=== PATIENT | male | born 1965 | race Caucasian/White ===

== ENCOUNTER → 2018-11-15 | Day surgery (SDC) | payer OTHER ==
[~2018-11-15] MED LIST: ARMOUR THYROID60 MG PO; ASA81 MG PO; CRESTOR10 MG PO; EPHEDRINE SULFATE INJ 50 MG/10 ML SYR ONE; FENTANYL CITRATE/PF 100MCG/2 ML INJ ONE; LISINOPRIL10 MG PO; METOCLOPRAMIDE HCL 10 MG/2ML VIAL ONE; MIDAZOLAM HCL 2 MG/2 ML VIAL ONE; Z.0.ESIDRIX25 MG PO; Z.0.TOPROL XL25 MG PO; Z.0.VALIUM5 MG PO
--- OUTSIDE RECORDS SUMMARY | 2018-11-15 10:11 | XMS REPORT | Clinical Summary ---
Author Author [facility] Organization [facility] Address Unknown Phone Unavailable Care Team Providers Care Commercial Litigation Associate Name Role Phone Tera Hunter MD PCP Allergies No Known Allergies Medications End Date Status Medication Sig Dispensed Refills Start Date Active aspirin 325 MG tablet Take 325 mg 0 by mouth daily. Active nitroglycerin (NITROSTAT) Place 0.4 mg 0 0.4 MG SL tablet under the tongue once. Active Problems Not on file Encounters Care Team Description Date Type Specialty Juan Sethi MD Calculus of ureter 04/06/2018 Hospital Radiology Encounter Juan Sethi MD Calculus of ureter (Primary Dx) 04/01/2018 Transcribe Access Orders after 11/14/2017 Social History Date Tobacco Use Types Packs/Day Years Used Never Smoker Smokeless Tobacco: Never Used Alcohol Use Drinks/Week oz/Week Comments No Sex Assigned at Date Recorded Not on file Industry Job Start Date Occupation Not on file Not on file Not on file Travel End Travel History Travel Start No recent travel history available. Last Filed Vital Signs Not on file Plan of Treatment Health Maintenance Due Date Last Done Comments COLON CANCER SCREENING 2014 SHINGLES VACCINES ( of 2014 2) INFLUENZA VACCINE 06/02/2018 Procedures Comments Procedure Name Priority Date/Time Associated Diagnosis CT ABDOMEN PELVIS WO Routine 04/06/2018 Calculus of ureter CONTRAST 9:31 AM CDT after 11/14/2017 Results * CT Abdomen Pelvis Wo Contrast (04/06/2018 9:31 AM CDT) Narrative Performed At EXAMINATION:CT ABDOMEN PELVIS WO CONTRAST [facility] CLINICAL HISTORY:N20.1 Calculus of ureter, STONES TECHNIQUE:Multiple axial CT images of the abdomen and pelvis are obtained without the use of intravenous contrast. Coronal and sagittal 3-D reconstructions are obtained. CT scans are performed using radiation dose reduction techniques.Technical factors are evaluated and adjusted to ensure appropriate moderation of exposure.Automated dose management technology is applied to adjust radiation exposure while achieving a diagnostic quality image. COMPARISON:10/08/2017 FINDINGS: Abdomen: The evaluation of the solid organs is limited without the use of intravenous contrast. The visualized lower lung zones has been removed. The gallbladder does not have any wall thickening. There is no pericholecystic fluid.. The CT appearance of the liver, spleen, pancreas and adrenal glands is unremarkable . The abdominal aorta has no aneurysmal dilatation. There is no retroperitoneal adenopathy. The left kidney does not have any stones or any hydronephrosis. The left ureter is unremarkable. The right kidney does not have any stones or any hydronephrosis. The right ureter does not have any stones. CT Pelvis: There is no evidence of any pneumoperitoneum. Stomach does not demonstrate any wall thickening. There is no bowel obstruction nor any dilated loops of bowel. Surgical clips are seen in the right lower quadrant. The evaluation of the GI tract is limited without any oral contrast. The colonic wall does not demonstrate any focal inflammation. There is no obvious wall thickening present. Small bowel is not dilated. The bladder does not demonstrate any masses. The prostate is minimally enlarged. There is no inguinal hernia present. Small inguinal nodes are present. IMPRESSION: 1. There are no renal, ureteral or bladder stones present. 2. There is no bowel obstruction nor any dilated loops of bowel. 3. Surgical clips are seen in the gallbladder fossa. Surgical clips also seen in the right lower quadrant which may suggest prior appendectomy. 4. The abdomen and pelvis do not demonstrate any masses. [facility]-[id number] Procedure Note [facility], Radiology Results Incoming - 04/06/2018 12:37 PM CDT EXAMINATION: CT ABDOMEN PELVIS WO CONTRAST CLINICAL HISTORY: N20.1 Calculus of ureter, STONES TECHNIQUE: Multiple axial CT images of the abdomen and pelvis are obtained without the use of intravenous contrast. Coronal and sagittal 3-D reconstructions are obtained. CT scans are performed using radiation dose reduction techniques. Technical factors are evaluated and adjusted to ensure appropriate moderation of exposure. Automated dose management technology is applied to adjust radiation exposure while achieving a diagnostic quality image. COMPARISON: 10/08/2017 FINDINGS: Abdomen: The evaluation of the solid organs is limited without the use of intravenous contrast. The visualized lower lung zones has been removed. The gallbladder does not have any wall thickening. There is no pericholecystic fluid.. The CT appearance of the liver, spleen, pancreas and adrenal glands is unremarkable . The abdominal aorta has no aneurysmal dilatation. There is no retroperitoneal adenopathy. The left kidney does not have any stones or any hydronephrosis. The left ureter is unremarkable. The right kidney does not have any stones or any hydronephrosis. The right ureter does not have any stones. CT Pelvis: There is no evidence of any pneumoperitoneum. Stomach does not demonstrate any wall thickening. There is no bowel obstruction nor any dilated loops of bowel. Surgical clips are seen in the right lower quadrant. The evaluation of the GI tract is limited without any oral contrast. The colonic wall does not demonstrate any focal inflammation. There is no obvious wall thickening present. Small bowel is not dilated. The bladder does not demonstrate any masses. The prostate is minimally enlarged. There is no inguinal hernia present. Small inguinal nodes are present. IMPRESSION: 1. There are no renal, ureteral or bladder stones present. 2. There is no bowel obstruction nor any dilated loops of bowel. 3. Surgical clips are seen in the gallbladder fossa. Surgical clips also seen in the right lower quadrant which may suggest prior appendectomy. 4. The abdomen and pelvis do not demonstrate any masses. [facility]-[id number] Performing Organization Address City/State/Zipcode Phone Number [facility] [address] [place] [address] after 11/14/2017 Insurance Payer Benefit Subscriber ID Type Phone Address Plan / Group CIGNA CIGNA OPEN xxxxxxxxxxx O ACCESS/NET WORK Advance Directives Patient has advance care planning documents on file. For more information, anni brito contact: Allan Esparza [address] [place] [address]
--- OUTSIDE RECORDS SUMMARY | 2018-11-15 10:12 | XMS REPORT | CCD ---
Author Author Auto Generated Organization [facility] Address Unknown Phone Unavailable Care Team Providers Care Farm Equipment Mechanic Apprentice Name Role Phone Tera Osuna CP Allergies, Adverse Reactions, Alerts Substance Reaction Status codeine Active Phenergan Active Toradol Active Problem List Condition Effective Dates Status Chest pain Active Depression Resolved HLD - Hyperlipidemia Resolved HTN - Hypertension Resolved Kidney stone Resolved Kidney stone Active Medications Medication Instructions Start Date End Date Status Ancef + Sodium 2 gm, Route: IVPB, ONCE, Dosing 08/11/2013 08/11/2013 Completed Chloride 0.9% IV 100 Weight 77.273, kg, Priority: STAT, mL Start date: 08/11/13 16:14:00, Stop date: 08/11/13 16:14:00(Same As: Ancef, Kefzol) hydromorphone 2 mg, 1 mL, Route: IVP, Drug form: 08/11/2013 08/11/2013 Completed INJ, ONCE, Dosing Weight 79.545, kg, Priority: STAT, Start date: 08/11/13 15:07:00, Stop date: 08/11/13 15:07:00(Same as: Dilaudid) Zofran 4 mg, 2 mL, Route: IVP, Drug form: 08/11/2013 08/11/2013 Completed INJ, ONCE, Dosing Weight 79.545, kg, Priority: STAT, Start date: 08/11/13 15:06:00, Stop date: 08/11/13 15:06:00(Same as: Zofran) morphine Sulfate 4 mg, 1 mL, Route: IVP, Drug form: 08/11/2013 08/11/2013 Completed INJ, ONCE, Dosing Weight 77.273, kg, Priority: STAT, Start date: 08/11/13 17:14:00, Stop date: 08/11/13 17:14:00(Same as:MORPhine Sulfate) Odin 10/325 oral 1 tab, Route: PO, Drug Form: TAB, 08/11/2013 08/11/2013 Completed tablet Dosing Weight 77.273, kg, ONCE, Start date: 08/11/13 19:53:00, Stop date: 08/11/13 19:53:00Do not exceed 4gm/day of acetaminophen. (Same as: Odin 325/10) trazodone 100 mg 100 mg, 1 tab, PO, Bedtime, PRN, 08/12/2013 Ordered oral tablet Insomnia, Substitution Allowed LR IV 1,000 mL 1,000 mL, Rate: 100 ml/hr, Infuse 08/11/2013 08/13/2013 Discontinued over: 10 hr, Route: IV, Dosing Weight 77.273 kg, Total Volume: 1,000, Start date: 08/11/13 22:22:00, Duration: 30 day, Stop date: 09/10/13 22:21:00 Odin 10/325 oral 2 tab, Route: PO, Drug Form: TAB, 08/11/2013 08/13/2013 Discontinued tablet Dosing Weight 77.273, kg, Q4H, PRN as needed for pain, Start date: 08/11/13 22:23:00, Duration: 30 day, Stop date: 09/10/13 22:22:00Do not exceed 4gm/day of acetaminophen. (Same as: Odin 325/10) Zofran 4 mg, 2 mL, Route: IV, Drug form: 08/11/2013 08/13/2013 Discontinued INJ, Q6H, Dosing Weight 77.273, kg, PRN as needed for nausea/vomiting, Start date: 08/11/13 22:24:00, Duration: 30 day, Stop date: 09/10/13 22:23:00(Same as: Zofran) Ancef + Sodium 2 gm, Route: IV, Drug form: 08/11/2013 08/13/2013 Discontinued Chloride 0.9% IV 100 PDR/INJ, ABXQ8H, Dosing Weight mL 77.273, kg, Start date: 08/11/13 23:00:00, Duration: 30 day, Stop date: 09/10/13 18:00:00(Same As: Ancef, Kefzol) Dilaudid 1 mg, Route: IV, ONCE, Dosing 08/11/2013 08/11/2013 Completed Weight 77.273, kg, Start date: 08/11/13 15:25:00, Stop date: 08/11/13 15:25:00 Lexapro 20 mg oral 20 mg, 1 tab, PO, Daily, 30 tab, 08/12/2013 Ordered tablet Substitution Allowed, TAB potassium citrate 5 5 mEq, 1 tab, PO, TID, Substitution 08/12/2013 Ordered mEq oral extended Allowed release tablet Keflex 500 mg oral 500 mg, 1 cap, PO, QID, 40 cap, 08/13/2013 08/23/2013 Ordered capsule Substitution Allowed, CAP Odin 10/325 oral 2 tab, PO, Q4H, PRN, 40 tab, 1, 1, 08/13/2013 Ordered tablet as needed for pain, Substitution Allowed, Maintenance, TAB Dilaudid 1 mg, 0.5 mL, Route: IV, Drug form: 08/11/2013 08/11/2013 Completed INJ, ONCE, Dosing Weight 77.273, kg, Start date: 08/11/13 19:53:00, Stop date: 08/11/13 19:53:00(Same as: Dilaudid) hydromorphone 1 mg, Route: IVP, ONCE, Dosing 08/11/2013 08/11/2013 Completed Weight 77.273, kg, Priority: STAT, Start date: 08/11/13 22:55:00, Stop date: 08/11/13 22:55:00 influenza virus 0.5 mL, Route: IM, Drug Form: SUSP, 08/12/2013 08/12/2013 Completed vaccine, inactivated Daily, Start date: 08/12/13 9:00:00, Duration: 1 doses or times, Stop date: 08/12/13 9:00:00(Same as: Fluzone) influenza virus 0.5 mL, Route: IM, Drug Form: SUSP, 08/12/2013 08/12/2013 Completed vaccine, inactivated Start date: 08/12/13 9:00:00, Stop date: 08/12/13 9:00:00 Livalo 2 mg oral 2 mg, 1 tab, PO, Daily, 08/12/2013 Ordered tablet Substitution Allowed levothyroxine 25 mcg 25 microgram, 1 tab, PO, Daily, 30 08/12/2013 Ordered (0.025 mg) oral tab, Substitution Allowed, TAB tablet metoprolol 25 mg 25 mg, 1 tab, PO, BID, Substitution 08/12/2013 Ordered oral tablet, Allowed extended release Odin 10/325 oral 1 tab, Route: PO, Dosing Weight 08/12/2013 08/12/2013 Completed tablet 77.273, kg, ONCE, Start date: 08/12/13 0:55:00, Stop date: 08/12/13 0:55:00 hydromorphone 1 mg, Route: IVP, ONCE, Dosing 08/12/2013 08/12/2013 Completed Weight 77.273, kg, Priority: STAT, Start date: 08/12/13 0:55:00, Stop date: 08/12/13 0:55:00 Dilaudid 0.5 mg, 0.25 mL, Route: IV, Drug 08/12/2013 08/13/2013 Discontinued form: INJ, Q3H, Dosing Weight 77.273, kg, PRN Pain, Start date: 08/12/13 10:24:00, Duration: 30 day, Stop date: 09/11/13 10:23:00(Same as: Dilaudid) fentanyl 50 microgram, Route: IVP, ONCE, 08/11/2013 08/11/2013 Completed Dosing Weight 77.273, kg, Priority: STAT, Start date: 08/11/13 18:25:00, Stop date: 08/11/13 18:25:00 Boostrix (Tdap) 0.5 ml, Route: IM, Dosing Weight 08/11/2013 08/11/2013 Completed 77.273, kg, ONCE, Start date: 08/11/13 15:18:00, Stop date: 08/11/13 15:18:00 Immunizations Vaccine Date Status diphtheria/pertussis, acel/tetanus adult 08/11/2013 Auth (Verified) influenza virus vaccine, inactivated 08/12/2013 Auth (Verified) Vital Signs Most recent to oldest [Reference Range]: 1 2 3 Height 167.64 cm (08/11/2013 15:05:00) Temperature Oral [96.4-99.1 DegF] 99 DegF (08/13/2013 07:40:00) 97.9 DegF (08/13/2013 03:29:00) 99.3 DegF *HI* (08/13/2013 00:05:00) Systolic Blood Pressure [90-140 mmHg] 107 mmHg (08/13/2013 07:40:00) 108 mmHg (08/13/2013 03:29:00) 110 mmHg (08/13/2013 00:05:00) Diastolic Blood Pressure [60-90 mmHg] 65 mmHg (08/13/2013 07:40:00) 59 mmHg *LOW* (08/13/2013 03:29:00) 69 mmHg (08/13/2013 00:05:00) Respiratory Rate [14-20 BRMIN] 18 BRMIN (08/13/2013 07:40:00) 18 BRMIN (08/13/2013 03:29:00) 18 BRMIN (08/13/2013 00:05:00) Peripheral Pulse Rate [60-100 bpm] 74 bpm (08/13/2013 07:40:00) 64 bpm (08/13/2013 03:29:00) 74 bpm (08/13/2013 00:05:00) Weight 77.273 kg (08/11/2013 15:05:00) Results BLOOD BANK RESULTS Most recent to oldest [Reference Range]: 1 2 ABO/Rh A NEG *Unknown* (08/11/2013 15:10:00) Antibody Scrn Negative (08/11/2013 15:10:00) CHEMISTRY Most recent to oldest [Reference Range]: 1 2 Sodium Lvl [135-145 mEq/L] 141 mEq/L (08/12/2013 10:49:00) 136 mEq/L (08/11/2013 15:13:00) Potassium Lvl [3.5-5.1 mEq/L] 4.2 mEq/L (08/12/2013 10:49:00) 3.7 mEq/L (08/11/2013 15:13:00) Chloride Lvl [95-109 mEq/L] 102 mEq/L (08/12/2013 10:49:00) 103 mEq/L (08/11/2013 15:13:00) CO2 [24-32 mEq/L] 31 mEq/L (08/12/2013 10:49:00) 24 mEq/L (08/11/2013 15:13:00) AGAP [10.0-20.0 mEq/L] 12.2 mEq/L (08/12/2013:49:00) 12.7 mEq/L (08/11/2013::) Creatinine Lvl [0.5-1.4 mg/dL] 1.0 mg/dL (08/12/2013:49:00) 1.1 mg/dL (08/11/2013::) eGFR 88 mL/min/1.73m2 1 *NA* (08/12/2013:49:00) 78 mL/min/1.73m2 2 *NA* (08/11/2013::) BUN [7-22 mg/dL] 12 mg/dL (08/12/2013:) 12 mg/dL (08/11/2013:) Glucose Lvl [70-99 mg/dL] 87 mg/dL 3 (08/12/2013:49:00) 109 mg/dL 4 *HI* (08/11/2013:) Calcium Lvl [8.5-10.5 mg/dL] 8.4 mg/dL *LOW* (08/12/2013:49:00) 8.9 mg/dL (08/11/2013::) 1Result Comment: The eGFR is calculated using the CKD-EPI formula. In most young, healthy individuals the eGFR will be >90 mL/min/1.73m2. The eGFR declines with age. An eGFR of 60-89 may be normal in some populations, particularly the elderly, for whom the CKD-EPI formula has not been extensively validated. Use of the eGFR is not recommended in the following populations: Individuals with unstable creatinine concentrations, including patients and those with serious co-morbid conditions. Patients with extremes in muscle mass or diet. The data above are obtained from the National Kidney Disease Education Program ( NKDEP) which additionally recommends that when the eGFR is used in patients with extremes of body mass index for purposes of drug dosing, the eGFR should be mul tiplied by the estimated BMI. 2Result Comment: The eGFR is calculated using the CKD-EPI formula. In most young, healthy individuals the eGFR will be >90 mL/min/1.73m2. The eGFR declines with age. An eGFR of 60-89 may be normal in some populations, particularly the elderly, for whom the CKD-EPI formula has not been extensively validated. Use of the eGFR is not recommended in the following populations: Individuals with unstable creatinine concentrations, including patients and those with serious co-morbid conditions. Patients with extremes in muscle mass or diet. The data above are obtained from the National Kidney Disease Education Program ( NKDEP) which additionally recommends that when the eGFR is used in patients with extremes of body mass index for purposes of drug dosing, the eGFR should be mul tiplied by the estimated BMI. 3Interpretive Data: Adult reference range values reflect the clinical guidelines of the [place] [employer]. 4Interpretive Data: Adult reference range values reflect the clinical guidelines of the [place] [employer]. HEMATOLOGY Most recent to oldest [Reference Range]: 1 2 WBC [3.7-10.4 K/CMM] 12.3 K/CMM *HI* (08/12/2013 10:49:00) 9.9 K/CMM (08/11/2013:13:00) RBC [4.70-6.10 M/CMM] 3.91 M/CMM *LOW* (08/12/2013 10:49:00) 4.11 M/CMM *LOW* (08/11/2013:13:00) Hgb [14.0-18.0 g/dL] 13.2 g/dL *LOW* (08/12/2013:49:00) 13.6 g/dL *LOW* (08/11/2013:13:00) Hct [42.0-54.0 %] 38.3 % *LOW* (08/12/2013:49:00) 39.6 % *LOW* (08/11/2013:13:00) MCV [80.0-94.0 fL] 97.9 fL *HI* (08/12/2013:49:00) 96.3 fL *HI* (08/11/2013:13:00) MCH [27.0-31.0 pg] 33.7 pg *HI* (08/12/2013:49:00) 33.1 pg *HI* (08/11/2013:13:00) MCHC [32.0-36.0 g/dL] 34.5 g/dL (08/12/2013 10:49:00) 34.4 g/dL (08/11/2013 15:13:00) RDW [11.5-14.5 %] 13.3 % (08/12/2013 10:49:00) 12.9 % (08/11/2013 15:13:00) Platelet [133-450 K/CMM] 207 K/CMM (08/12/2013 10:49:00) 230 K/CMM (08/11/2013 15:13:00) MPV [7.4-10.4 fL] 8.3 fL (08/12/2013 10:49:00) 8.8 fL (08/11/2013 15:13:00) Segs [45.0-75.0 %] 64.8 % (08/12/2013 10:49:00) 65.5 % (08/11/2013 15:13:00) Lymphocytes [20.0-40.0 %] 21.8 % (08/12/2013 10:49:00) 19.3 % *LOW* (08/11/2013 15:13:00) Monocytes [2.0-12.0 %] 8.7 % (08/12/2013 10:49:00) 8.6 % (08/11/2013 15:13:00) Eosinophils [0.0-4.0 %] 4.1 % *HI* (08/12/2013 10:49:00) 4.8 % *HI* (08/11/2013 15:13:00) Basophils [0.0-1.0 %] 0.6 % (08/12/2013 10:49:00) 1.8 % *HI* (08/11/2013 15:13:00) Segs-Bands # [1.5-8.1 K/CMM] 8.0 K/CMM (08/12/2013 10:49:00) 6.4 K/CMM (08/11/2013 15:13:00) Lymphocytes # [1.0-5.5 K/CMM] 2.7 K/CMM (08/12/2013 10:49:00) 1.9 K/CMM (08/11/2013 15:13:00) Monocytes # [0.0-0.8 K/CMM] 1.1 K/CMM *HI* (08/12/2013 10:49:00) 0.9 K/CMM *HI* (08/11/2013 15:13:00) Eosinophils # [0.0-0.5 K/CMM] 0.5 K/CMM (08/12/2013 10:49:00) 0.5 K/CMM (08/11/2013 15:13:00) Basophils # [0.0-0.2 K/CMM] 0.1 K/CMM (08/12/2013 10:49:00) 0.2 K/CMM (08/11/2013 15:13:00) PT [12.0-14.7 seconds] 13.4 seconds (08/12/2013 10:49:00) 13.0 seconds (08/11/2013 15:13:00) INR [0.85-1.17] 1.03 5 (08/12/2013 10:49:00) 0.99 6 (08/11/2013 15:13:00) PTT [22.9-35.8 seconds] 32.0 seconds 7 (08/12/2013 10:49:00) 30.9 seconds 8 (08/11/2013 15:13:00) 5Interpretive Data: RECOMMENDED RANGES FOR PROTIME INR: 2.0-3.0 for most medical and surgical thromboembolic states. 2.5-3.5 for artificial heart valves and recurrent embolism. INR SHOULD BE USED ONLY FOR PATIENTS ON STABLE ANTICOAGULANT THERAPY. 6Interpretive Data: RECOMMENDED RANGES FOR PROTIME INR: 2.0-3.0 for most medical and surgical thromboembolic states. 2.5-3.5 for artificial heart valves and recurrent embolism. INR SHOULD BE USED ONLY FOR PATIENTS ON STABLE ANTICOAGULANT THERAPY. 7Interpretive Data: Heparin Therapeutic Range: 57 - 92 Seconds 8Interpretive Data: Heparin Therapeutic Range: 57 - 92 Seconds IMMUNOLOGY Most recent to oldest [Reference Range]: 1 2 CDC-HIV 1/2 Ab [Negative] Negative *NA* (08/11/2013 15:11:00) Procedures Procedures Date Related Diagnosis Ankle reoperations Rotator cuff repair
--- OUTSIDE RECORDS SUMMARY | 2018-11-15 10:12 | XMS REPORT | CCD ---
Author Author Auto Generated Organization [facility] Address Unknown Phone Unavailable Care Team Providers Care Certified Ophthalmic Technician Name Role Phone Tera Osuna CP Allergies, Adverse Reactions, Alerts Substance Reaction Status codeine Active Phenergan Active Toradol Active Problem List Condition Effective Dates Status Chest pain Active Depression Resolved HLD - Hyperlipidemia Resolved HTN - Hypertension Resolved Kidney stone Resolved Kidney stone Active Medications Medication Instructions Start Date End Date Status tramadol 50 mg oral 50 mg, 1 tab, Route: PO, Drug form: 08/18/2013 08/20/2013 Discontinued tablet TAB, Q6H, Dosing Weight 77.273, kg, PRN as needed for pain, Start date: 08/18/13 9:42:00, Duration: 30 day, Stop date: 09/17/13 9:41:00Not to exceed 400mg/day. (Same As: Ultram) Bureau 10/325 oral 1 tab, Route: PO, Drug Form: TAB, 08/18/2013 08/20/2013 Discontinued tablet Dosing Weight 77.273, kg, Q4H, Start date: 08/18/13 12:00:00, Duration: 30 day, Stop date: 09/17/13 8:00:00Do not exceed 4gm/day of acetaminophen. (Same as: Bureau 325/10) morphine Sulfate 2 mg, 1 mL, Route: IVP, Drug form: 08/18/2013 08/18/2013 Discontinued INJ, Q2H, Dosing Weight 77.273, kg, PRN Pain, Start date: 08/18/13 9:42:00, Duration: 30 day, Stop date: 09/17/13 9:41:00(Same as:MORPhine Sulfate) Zofran 4 mg, 2 mL, Route: IV, Drug form: 08/18/2013 08/20/2013 Discontinued INJ, Q8H, Dosing Weight 77.273, kg, PRN Nausea, Start date: 08/18/13 16:23:00, Duration: 30 day, Stop date: 09/17/13 16:22:00(Same as: Zofran) Bureau 10 oral 1 tab, Route: PO, Dosing Weight 08/17/2013 08/17/2013 Completed tablet 77.273, kg, ONCE, Start date: 08/17/13 21:42:00, Stop date: 08/17/13 21:42:00 Dilaudid 1 mg, Route: IV, ONCE, Dosing 08/17/2013 08/17/2013 Completed Weight 77.273, kg, Start date: 08/17/13 21:42:00, Stop date: 08/17/13 21:42:00 Zofran 4 mg, 2 mL, Route: IVP, Drug form: 08/17/2013 08/17/2013 Completed INJ, ONCE, Dosing Weight 77.273, kg, Priority: STAT, Start date: 08/17/13 19:33:00, Stop date: 08/17/13 19:33:00(Same as: Zofran) normal saline 0.9% 1,000 mL, Rate: 125 ml/hr, Infuse 08/18/2013 08/18/2013 Completed IV 1,000 mL over: 8 hr, Route: IV, Dosing Weight 77.273 kg, Total Volume: 1,000, Priority: STAT, Start date: 08/18/13 0:32:00, Duration: 1 doses or times, Stop date: 08/18/13 8:31:00 Benadryl 25 mg, 1 cap, Route: PO, Drug form: 08/18/2013 08/20/2013 Discontinued CAP, TID, Dosing Weight 77.273, kg, PRN Itching, Start date: 08/18/13 9:40:00, Duration: 30 day, Stop date: 09/17/13 9:39:00(Same as: Benadryl) hydromorphone 0.5 mg, 0.25 mL, Route: IVP, Drug 08/18/2013 08/19/2013 Completed form: INJ, Q5Min, Dosing Weight 77.273, kg, PRN Pain Score 7-10, Start date: 08/18/13 9:46:00, Duration: 5 doses or times, Stop date: Limited # of times(Same as: Dilaudid) ondansetron 4 mg, 2 mL, Route: IVP, Drug form: 08/18/2013 08/20/2013 Discontinued INJ, ONCE, Dosing Weight 77.273, kg, PRN Nausea & Vomiting, Start date: 08/18/13 9:46:00(Same as: Zofran) flumazenil 0.2 mg, 2 mL, Route: IVP, Drug 08/18/2013 08/19/2013 Completed form: INJ, PRN, Dosing Weight 77.273, kg, PRN Benzodiazepine Reversal, Initial dose, Start date: 08/18/13 9:46:00, Duration: 1 day, Stop date: 08/19/13 9:45:00(Same as: Romazicon) naloxone 0.04 mg, 0.1 mL, Route: IVP, Drug 08/18/2013 08/20/2013 Discontinued form: INJ, Q2MIN, Dosing Weight 77.273, kg, PRN Narcotic Reversal, Start date: 08/18/13 9:46:00, Duration: 8 doses or times, Stop date: Limited # of timesSame as Narcan acetaminophen-10 1,000 mg, 100 mL, Route: IV, Drug 08/18/2013 08/20/2013 Discontinued mg/mL INTRAVENOUS form: INJ, ONCE, Dosing Weight solution 77.273, kg, PRN Pain Score 4-6, Start date: 08/18/13 9:46:00, Duration: 1 doses or times, Stop date: Limited # of times, Infuse over 15 minutes (for patient weight 50 kg or greater) Infuse over 15 minutes (for patient weight 50 kg or greater)Infuse over 15 minutes Do not exceed 4gm/day of acetaminophen acetaminophen-hydroc 15 mL, Route: PO, Drug Form: SOLN, 08/18/2013 08/19/2013 Completed odone 300 mg-10 Dosing Weight 77.273, kg, Q4H, PRN mg/15 mL oral liquid Pain Score 4-6, Start date: 08/18/13 9:46:00, Duration: 1 day, Stop date: 08/19/13 8:00:00Do not exceed 4gm/day of acetaminophen. (Same as: Zolvit) influenza virus 0.5 mL, Route: IM, Drug Form: SUSP, 08/12/2013 08/12/2013 Completed vaccine, inactivated Start date: 08/12/13 9:00:00, Stop date: 08/12/13 9:00:00 clindamycin 600 mg, 4 mL, Route: IVPB, Drug 08/17/2013 08/17/2013 Completed form: INJ, ONCE, Dosing Weight 77.273, kg, Priority: STAT, Start date: 08/17/13 19:40:00, Stop date: 08/17/13 19:40:00(clindamycin 150 mg/1 ml (600 mg/4 ml VL) INJ) (Same As: Cleocin) vancomycin + Sodium 1.5 gm, Route: IVPB, Drug form: 08/18/2013 08/18/2013 Completed Chloride 0.9% IV 250 INJ, ONCE, Start date: 08/18/13 mL 2:30:00, Stop date: 08/18/13 2:30:00(Same As: Vancocin) Vancomycin FOR IV SET ONLY Sodium Chloride 0.9% 2,000 mL, Rate: 2,000 ml/hr, Infuse 08/17/2013 08/17/2013 Completed (Bolus) IV 2000 mL over: 1 hr, Route: IV, Dosing Weight 77.273 kg, Total Volume: 2,000, Priority: STAT, Start date: 08/17/13 20:37:00, Duration: 1 doses or times, Stop date: 08/17/13 21:36:00, Bolus Dose Bolus Dose [place] 5/325 oral 1-2 tab, PO, Q4-6H, PRN, 40 tab, 08/20/2013 08/27/2013 Ordered tablet Pain, Substitution Allowed, Maintenance multivitamin 1 tab, PO, Daily, Substitution 08/18/2013 08/19/2013 Completed Allowed, Maintenance Dilaudid 0.5 mg, 0.25 mL, Route: IV, Drug 08/18/2013 08/19/2013 Discontinued form: INJ, Q3H, Dosing Weight 77.273, kg, PRN Pain, Start date: 08/18/13 10:11:00, Duration: 30 day, Stop date: 09/17/13 10:10:00(Same as: Dilaudid) Dilaudid 1 mg, 0.5 mL, Route: IV, Drug form: 08/17/2013 08/17/2013 Completed INJ, ONCE, Dosing Weight 77.273, kg, Start date: 08/17/13 19:33:00, Stop date: 08/17/13 19:33:00(Same as: Dilaudid) Lovenox 30 mg, 0.3 mL, Route: SUB-Q, Drug 08/18/2013 08/20/2013 Discontinued form: INJ, [id number], Dosing Weight 77.273, kg, Start date: 08/18/13 10:00:00, Duration: 30 day, Stop date: 09/16/13 22:00:00(Same as: Lovenox) Keflex 500 mg oral 500 mg, 1 cap, PO, QID, 40 cap, 08/20/2013 08/30/2013 Ordered capsule Substitution Allowed, CAP [place] 10/325 oral 2 tab, Route: PO, Drug Form: TAB, 08/18/2013 08/20/2013 Discontinued tablet Dosing Weight 77.273, kg, Q4H, PRN as needed for pain, Start date: 08/18/13 0:32:00, Duration: 30 day, Stop date: 09/17/13 0:31:00Do not exceed 4gm/day of acetaminophen. (Same as: Bureau 325/10) Zosyn 3.375 gm, Route: IVPB, Drug form: 08/18/2013 08/19/2013 Discontinued PDR/INJ, Q8H, Dosing Weight 77.273, kg, Priority: STAT, Start date: 08/18/13 0:31:00, Duration: 30 day, Stop date: 09/17/13 0:00:00(Same as: Zosyn) Dosing based on Piperacillin component vancomycin + Sodium 1.5 gm, Route: IVPB, Drug form: 08/19/2013 08/19/2013 Discontinued Chloride 0.9% IV 250 INJ, [id number], Start date: 08/19/13 mL 2:30:00, Duration: 30 day, Stop date: 09/17/13 2:30:00(Same As: Vancocin) Vancomycin FOR IV SET ONLY Lovenox 30 mg/0.3 mL 30 mg, SUB-Q, Q12H, 28 syr, 08/20/2013 09/03/2013 Ordered subcutaneous Substitution Allowed, SOLN solution Colace 100 mg oral 100 mg, 1 cap, PO, BID, PRN, 20 08/20/2013 Ordered capsule cap, Constipation, Substitution Allowed, CAP Boostrix (Tdap) 0.5 ml, Route: IM, Dosing Weight 08/11/2013 08/11/2013 Completed 77.273, kg, ONCE, Start date: 08/11/13 15:18:00, Stop date: 08/11/13 15:18:00 Immunizations Vaccine Date Status diphtheria/pertussis, acel/tetanus adult 08/11/2013 Auth (Verified) influenza virus vaccine, inactivated 08/12/2013 Auth (Verified) Vital Signs Most recent to oldest [Reference Range]: 1 2 3 Height 167.64 cm (08/18/2013 02:08:00) 167.64 cm (08/18/2013 00:30:00) 167.64 cm (08/17/2013 19:18:00) Temperature Oral [96.4-99.1 DegF] 97.9 DegF (08/20/2013 11:58:00) 98.1 DegF (08/20/2013 08:22:00) 98.1 DegF (08/20/2013 04:35:00) Systolic Blood Pressure [90-140 mmHg] 126 mmHg (08/20/2013 11:58:00) 112 mmHg (08/20/2013 08:22:00) 104 mmHg (08/20/2013 04:35:00) Diastolic Blood Pressure [60-90 mmHg] 72 mmHg (08/20/2013 11:58:00) 60 mmHg (08/20/2013 08:22:00) 56 mmHg *LOW* (08/20/2013 04:35:00) Respiratory Rate [14-20 BRMIN] 18 BRMIN (08/20/2013 11:58:00) 18 BRMIN (08/20/2013 08:22:00) 18 BRMIN (08/20/2013 04:35:00) Peripheral Pulse Rate [60-100 bpm] 52 bpm *LOW* (08/20/2013 11:58:00) 77 bpm (08/20/2013 08:22:00) 54 bpm *LOW* (08/20/2013 04:35:00) Weight 77.273 kg (08/18/2013 02:08:00) 77.273 kg (08/18/2013 00:30:00) 77.273 kg (08/17/2013 19:18:00) Results BLOOD BANK RESULTS Most recent to oldest [Reference Range]: 1 2 ABO/Rh A NEG *Unknown* (08/17/2013 19:40:00) Antibody Scrn Negative (08/17/2013 19:40:00) CHEMISTRY Most recent to oldest [Reference Range]: 1 2 Sodium Lvl [135-145 mEq/L] 138 mEq/L (08/17/2013 22:57:00) 137 mEq/L (08/17/2013 20:00:44) Potassium Lvl [3.5-5.1 mEq/L] 4.2 mEq/L (08/17/2013 22:57:00) 4.2 mEq/L (08/17/2013 20:00:44) Chloride Lvl [95-109 mEq/L] 105 mEq/L (08/17/2013 22:57:00) 100 mEq/L (08/17/2013 20:00:44) CO2 [24-32 mEq/L] 28 mEq/L (08/17/2013 22:57:00) 28 mEq/L (08/17/2013 20:00:44) AGAP [10.0-20.0 mEq/L] 9.2 mEq/L *LOW* (08/17/2013 22:57:00) 13.2 mEq/L (08/17/2013 20:00:44) Creatinine Lvl [0.5-1.4 mg/dL] 1.3 mg/dL (08/17/2013 22:57:00) 1.5 mg/dL *HI* (08/17/2013 20:00:44) eGFR 64 mL/min/1.73m2 1 *NA* (08/17/2013 22:57:00) 54 mL/min/1.73m2 2 *NA* (08/17/2013 20:00:44) BUN [7-22 mg/dL] 13 mg/dL (08/17/2013 22:57:00) 11 mg/dL (08/17/2013 20:00:44) Glucose Lvl [70-99 mg/dL] 105 mg/dL 3 *HI* (08/17/2013 22:57:00) 101 mg/dL 4 *HI* (08/17/2013 20:00:44) Calcium Lvl [8.5-10.5 mg/dL] 7.8 mg/dL *LOW* (08/17/2013 22:57:00) 8.9 mg/dL (08/17/2013 20:00:44) Lactic Acid Lvl [0.5-2.2 mMol/L] 0.6 mMol/L (08/17/2013 22:57:00) 3.4 mMol/L *HI* (08/17/2013 20:00:44) 1Result Comment: The eGFR is calculated using [...] values reflect the clinical guidelines of the [place] [employer]. 4Interpretive Data: Adult reference range values reflect the clinical guidelines of the [place] [employer]. HEMATOLOGY Most recent to oldest [Reference Range]: 1 2 WBC [3.7-10.4 K/CMM] 9.3 K/CMM (08/17/2013:00:44) RBC [4.70-6.10 M/CMM] 3.98 M/CMM *LOW* (08/17/201344) Hgb [14.0-18.0 g/dL] 12.7 g/dL *LOW* (08/17/201344) Hct [42.0-54.0 %] 38.2 % *LOW* (08/17/201344) MCV [80.0-94.0 fL] 96.1 fL *HI* (08/17/201344) MCH [27.0-31.0 pg] 32.0 pg *HI* (08/17/201344) MCHC [32.0-36.0 g/dL] 33.3 g/dL (08/17/201344) RDW [11.5-14.5 %] 12.3 % (08/17/2013:44) Platelet [133-450 K/CMM] 265 K/CMM (08/17/20130044) MPV [7.4-10.4 fL] 8.0 fL (08/17/2013:44) Segs [45.0-75.0 %] 54.0 % (08/17/201344) Lymphocytes [20.0-40.0 %] 31.0 % (08/17/2013:44) Monocytes [2.0-12.0 %] 8.3 % (08/17/2013:44) Eosinophils [0.0-4.0 %] 6.1 % *HI* (08/17/201344) Basophils [0.0-1.0 %] 0.6 % (08/17/2013:0044) Segs-Bands # [1.5-8.1 K/CMM] 4.9 K/CMM (08/17/2013 20:00:44) Lymphocytes # [1.0-5.5 K/CMM] 2.9 K/CMM (08/17/2013 20:00:44) Monocytes # [0.0-0.8 K/CMM] 0.8 K/CMM (08/17/2013 20:00:44) Eosinophils # [0.0-0.5 K/CMM] 0.6 K/CMM *HI* (08/17/2013 20:00:44) Basophils # [0.0-0.2 K/CMM] 0.1 K/CMM (08/17/2013 20:00:44) Sed Rate [0-15 mm/hr] 33 mm/hr *HI* (08/17/2013 19:40:00) PT [12.0-14.7 seconds] 13.0 seconds (08/17/2013 20:00:07) INR [0.85-1.17] 0.99 5 (08/17/2013 20:00:07) PTT [22.9-35.8 seconds] 36.3 seconds 6 *HI* (08/17/2013 20:00:07) 5Interpretive Data: RECOMMENDED RANGES FOR PROTIME INR: 2.0-3.0 for most medical and surgical thromboembolic states. 2.5-3.5 for artificial heart valves and recurrent embolism. INR SHOULD BE USED ONLY FOR PATIENTS ON STABLE ANTICOAGULANT THERAPY. 6Interpretive Data: Heparin Therapeutic Range: 57 - 92 Seconds IMMUNOLOGY Most recent to oldest [Reference Range]: 1 2 CRP, High Sensitivity 16.3 mg/L 7 *NA* (08/17/2013 19:40:00) 7Interpretive Data: Low Risk: <1.0 mg/L Average Risk: 1.0 - 3.0 mg/L High Risk: >3.0 mg/L Inflammation: >10.0 mg/L Microbiology Reports PROCEDURE:Culture: Blood STATUS: Auth (Verified) BODY SITE: Right Wrist COLLECTED DATE/TIME: 08/17/2013 19:40:00 SOURCE: Blood FREE TEXT SOURCE: FINAL REPORTS Final Report No Growth At 5 Days PRELIMINARY REPORTS Preliminary Report No Growth At 1 Day Preliminary Report No Growth At 3 Days Preliminary Report No Growth At 2 Days Preliminary Report No Growth At 4 Days Preliminary Report No Growth At 5 Days PROCEDURE:Culture: Blood STATUS: Auth (Verified) BODY SITE: COLLECTED DATE/TIME: 08/17/2013 19:40:00 SOURCE: Blood FREE TEXT SOURCE: rt forearm FINAL REPORTS Final Report No Growth At 5 Days PRELIMINARY REPORTS Preliminary Report No Growth At 3 Days Preliminary Report No Growth At 4 Days Preliminary Report No Growth At 1 Day Preliminary Report No Growth At 5 Days Preliminary Report No Growth At 2 Days Procedures Procedures Date Related Diagnosis Cholecystectomy
--- OUTSIDE RECORDS SUMMARY | 2018-11-15 10:12 | XMS REPORT | CCD ---
Author Author Auto Generated Organization [facility] Address Unknown Phone Unavailable Care Team Providers Care Strategic Development Manager Name Role Phone Tera Osuna CP Allergies, [...] 9:41:00Not to exceed 400mg/day. (Same As: Ultram) [place] 10/325 oral 1 tab, Route: PO, Drug Form: TAB, 08/18/2013 08/20/2013 Discontinued tablet Dosing Weight 77.273, kg, Q4H, Start date: 08/18/13 12:00:00, Duration: 30 day, Stop date: 09/17/13 8:00:00Do not exceed 4gm/day of acetaminophen. (Same as: [place] 325/10) morphine Sulfate 2 mg, 1 mL, [...] day, Stop date: 09/17/13 16:22:00(Same as: Zofran) [place] 10 oral 1 tab, Route: PO, Dosing [...] date: 08/17/13 21:36:00, Bolus Dose Bolus Dose [place] 5/325 oral 1-2 tab, PO, Q4-6H, PRN, [...] SUB-Q, Drug 08/18/2013 08/20/2013 Discontinued form: INJ, [id number], Dosing Weight 77.273, kg, Start date: 08/18/13 10:00:00, Duration: 30 day, Stop date: 09/16/13 22:00:00(Same as: Lovenox) Keflex 500 mg oral 500 mg, 1 cap, PO, QID, 40 cap, 08/20/2013 08/30/2013 Ordered capsule Substitution Allowed, CAP [place] 10/325 oral 2 tab, Route: PO, Drug Form: TAB, 08/18/2013 08/20/2013 Discontinued tablet Dosing Weight 77.273, kg, Q4H, PRN as needed for pain, Start date: 08/18/13 0:32:00, Duration: 30 day, Stop date: 09/17/13 0:31:00Do not exceed 4gm/day of acetaminophen. (Same as: [place] 325/10) Zosyn 3.375 gm, Route: IVPB, Drug form: 08/18/2013 08/19/2013 Discontinued PDR/INJ, Q8H, Dosing Weight 77.273, kg, Priority: STAT, Start date: 08/18/13 0:31:00, Duration: 30 day, Stop date: 09/17/13 0:00:00(Same as: Zosyn) Dosing based on Piperacillin component vancomycin + Sodium 1.5 gm, Route: IVPB, Drug form: 08/19/2013 08/19/2013 Discontinued Chloride 0.9% IV 250 INJ, [id number], Start date: 08/19/13 mL 2:30:00, Duration: 30 [...] values reflect the clinical guidelines of the [place] [employer]. 4Interpretive Data: Adult reference range values reflect the clinical guidelines of the [place] [employer]. HEMATOLOGY Most recent to oldest [...] >10.0 mg/L Microbiology Reports PROCEDURE:Culture: Blood STATUS: Order in Progress BODY SITE: Right Wrist COLLECTED DATE/TIME: 08/17/2013 19:40:00 SOURCE: Blood FREE TEXT SOURCE: PRELIMINARY REPORTS Preliminary Report No Growth At 1 Day Preliminary Report No Growth At 3 Days Preliminary Report No Growth At 2 Days Preliminary Report No Growth At 4 Days Preliminary Report No Growth At 5 Days PROCEDURE:Culture: Blood STATUS: Order in Progress BODY SITE: COLLECTED DATE/TIME: 08/17/2013 19:40:00 SOURCE: Blood FREE TEXT SOURCE: rt forearm PRELIMINARY REPORTS Preliminary Report No Growth At 3 Days Preliminary Report No Growth At 4 Days Preliminary Report No Growth At 1 Day Preliminary Report No Growth At 5 Days Preliminary Report No Growth At 2 Days Procedures Procedures Date Related Diagnosis Cholecystectomy
--- OUTSIDE RECORDS SUMMARY | 2018-11-15 10:12 | XMS REPORT | CCD ---
Author Author Auto Generated Organization [facility] Address Unknown Phone Unavailable Care Team Providers Care Coil Cutter Name Role Phone Tera Osuna CP Allergies, Adverse Reactions, Alerts Substance Reaction Status codeine Active Phenergan Active Toradol Active Problem List Condition Effective Dates Status Chest pain Active HLD - Hyperlipidemia Resolved HTN - Hypertension [...] 17:14:00, Stop date: 08/11/13 17:14:00(Same as:MORPhine Sulfate) [place] 10/325 oral 1 tab, Route: PO, Drug Form: TAB, 08/11/2013 08/11/2013 Completed tablet Dosing Weight 77.273, kg, ONCE, Start date: 08/11/13 19:53:00, Stop date: 08/11/13 19:53:00Do not exceed 4gm/day of acetaminophen. (Same as: [place] 325/10) trazodone 100 mg 100 mg, 1 tab, PO, Bedtime, PRN, 08/12/2013 Ordered oral tablet Insomnia, Substitution Allowed LR IV 1,000 mL 1,000 mL, Rate: 100 ml/hr, Infuse 08/11/2013 08/13/2013 Discontinued over: 10 hr, Route: IV, Dosing Weight 77.273 kg, Total Volume: 1,000, Start date: 08/11/13 22:22:00, Duration: 30 day, Stop date: 09/10/13 22:21:00 [place] 10/325 oral 2 tab, Route: PO, Drug Form: TAB, 08/11/2013 08/13/2013 Discontinued tablet Dosing Weight 77.273, kg, Q4H, PRN as needed for pain, Start date: 08/11/13 22:23:00, Duration: 30 day, Stop date: 09/10/13 22:22:00Do not exceed 4gm/day of acetaminophen. (Same as: [place] 325/10) Zofran 4 mg, 2 mL, Route: [...] 08/13/2013 08/23/2013 Ordered capsule Substitution Allowed, CAP [place] 10/325 oral 2 tab, PO, Q4H, PRN, [...] 08/12/2013 Ordered oral tablet, Allowed extended release [place] 10/325 oral 1 tab, Route: PO, Dosing [...] [10.0-20.0 mEq/L] 12.2 mEq/L (08/12/2013:49:00) 12.7 mEq/L (08/11/2013:13:) Creatinine Lvl [0.5-1.4 mg/dL] 1.0 mg/dL (08/12/2013:49:00) 1.1 mg/dL (08/11/2013:13:) eGFR 88 mL/min/1.73m2 1 *NA* (08/12/2013:49:00) 78 mL/min/1.73m2 2 *NA* (08/11/2013::) BUN [7-22 mg/dL] 12 mg/dL (08/12/2013:49:00) 12 mg/dL (08/11/2013:) Glucose Lvl [70-99 mg/dL] 87 mg/dL 3 (08/12/2013:49:00) 109 mg/dL 4 *HI* (08/11/2013::) Calcium Lvl [8.5-10.5 mg/dL] 8.4 mg/dL *LOW* (08/12/2013:49:00) 8.9 mg/dL (08/11/2013:13:00) 1Result Comment: The eGFR is calculated using [...] values reflect the clinical guidelines of the [place] [employer]. 4Interpretive Data: Adult reference range values reflect the clinical guidelines of the [place] [employer]. HEMATOLOGY Most recent to oldest [Reference Range]: 1 2 WBC [3.7-10.4 K/CMM] 12.3 K/CMM *HI* (08/12/2013 10:49:00) 9.9 K/CMM (08/11/2013:13:00) RBC [4.70-6.10 M/CMM] 3.91 M/CMM *LOW* (08/12/2013 10:49:00) 4.11 M/CMM *LOW* (08/11/2013:13:00) Hgb [14.0-18.0 g/dL] 13.2 g/dL *LOW* (08/12/2013:49:00) 13.6 g/dL *LOW* (08/11/2013:13:00) Hct [42.0-54.0 %] 38.3 % *LOW* (08/12/2013 10:49:00) 39.6 % *LOW* (08/11/2013:13:00) MCV [80.0-94.0 fL] 97.9 fL *HI* (08/12/2013 10:49:00) 96.3 fL *HI* (08/11/2013:13:00) MCH [27.0-31.0 pg] 33.7 pg *HI* (08/12/2013 10:49:00) 33.1 pg *HI* (08/11/2013:13:00) MCHC [32.0-36.0 g/dL] [...] 2 CDC-HIV 1/2 Ab [Negative] Negative *NA* (08/11/2013:11:00) Procedures Procedures Date Related Diagnosis Ankle reoperations Rotator cuff repair
--- OUTSIDE RECORDS SUMMARY | 2018-11-15 10:12 | XMS REPORT | CCD ---
Author Author Auto Generated Organization [facility] Address Unknown Phone Unavailable Care Team Providers Care Barrel Rifler Broach Name Role Phone Tera Osuna CP Allergies, [...] 9:41:00Not to exceed 400mg/day. (Same As: Ultram) [place] 10/325 oral 1 tab, Route: PO, Drug Form: TAB, 08/18/2013 08/20/2013 Discontinued tablet Dosing Weight 77.273, kg, Q4H, Start date: 08/18/13 12:00:00, Duration: 30 day, Stop date: 09/17/13 8:00:00Do not exceed 4gm/day of acetaminophen. (Same as: [place] 325/10) morphine Sulfate 2 mg, 1 mL, [...] day, Stop date: 09/17/13 16:22:00(Same as: Zofran) [place] 10 oral 1 tab, Route: PO, Dosing [...] date: 08/17/13 21:36:00, Bolus Dose Bolus Dose [place] 5/325 oral 1-2 tab, PO, Q4-6H, PRN, [...] SUB-Q, Drug 08/18/2013 08/20/2013 Discontinued form: INJ, [id number], Dosing Weight 77.273, kg, Start date: 08/18/13 10:00:00, Duration: 30 day, Stop date: 09/16/13 22:00:00(Same as: Lovenox) Keflex 500 mg oral 500 mg, 1 cap, PO, QID, 40 cap, 08/20/2013 08/30/2013 Ordered capsule Substitution Allowed, CAP [place] 10/325 oral 2 tab, Route: PO, Drug Form: TAB, 08/18/2013 08/20/2013 Discontinued tablet Dosing Weight 77.273, kg, Q4H, PRN as needed for pain, Start date: 08/18/13 0:32:00, Duration: 30 day, Stop date: 09/17/13 0:31:00Do not exceed 4gm/day of acetaminophen. (Same as: [place] 325/10) Zosyn 3.375 gm, Route: IVPB, Drug form: 08/18/2013 08/19/2013 Discontinued PDR/INJ, Q8H, Dosing Weight 77.273, kg, Priority: STAT, Start date: 08/18/13 0:31:00, Duration: 30 day, Stop date: 09/17/13 0:00:00(Same as: Zosyn) Dosing based on Piperacillin component vancomycin + Sodium 1.5 gm, Route: IVPB, Drug form: 08/19/2013 08/19/2013 Discontinued Chloride 0.9% IV 250 INJ, [id number], Start date: 08/19/13 mL 2:30:00, Duration: 30 [...] values reflect the clinical guidelines of the [place] [employer]. 4Interpretive Data: Adult reference range values reflect the clinical guidelines of the [place] [employer]. HEMATOLOGY Most recent to oldest [...]
--- OUTSIDE RECORDS SUMMARY | 2018-11-15 10:12 | XMS REPORT | Continuity of Care Document ---
Author Author [facility] Interface Address Unknown Phone Unavailable Problems Problem Status Onset Date Classification Date Reported Comments Source FLANK PAIN Active 07/02/2018 [facility] RENAL CHOLIC Active 07/02/2018 [facility] SENT BY DOC Active 08/17/2013 [facility] LLE CELLULITIS Active 08/17/2013 [facility] Chest pain Active Problem 08/27/2013 [facility] HLD - Hyperlipidemia Resolved Problem 08/27/2013 [facility] HTN - Hypertension Resolved Problem 08/27/2013 [facility] Kidney stone Resolved Problem 08/27/2013 [facility] Depression Resolved Problem 08/27/2013 [facility] CELLULITIS NOS Active [facility] Medications Medication Details Route Status Patient Instructions Ordering Provider Order Date Source Lovenox 30 mg/0.3 mL subcutaneous solution 30 mg, SUB-Q, Q12H, 28 syr, Substitution Allowed, SOLN Active Olson 08/20/2013 [facility] Colace 100 mg oral capsule 100 mg, 1 cap, PO, BID, PRN, 20 cap, Constipation, Substitution Allowed, CAP Active Olson 08/20/2013 [facility] [place] 5/325 oral tablet 1-2 tab, PO, Q4-6H, PRN, 40 tab, Pain, Substitution Allowed, Maintenance Active Olson 08/20/2013 [facility] Keflex 500 mg oral capsule 500 mg, 1 cap, PO, QID, 40 cap, Substitution Allowed, CAP Active Olson 08/20/2013 [facility] vancomycin + Sodium Chloride 0.9% IV 250 mL 1.5 gm, Route: IVPB, Drug form: INJ, [id number], Start date: 08/19/13 2:30:00, Duration: 30 day, Stop date: 09/17/13 2:30:00(Same As: Vancocin) Vancomycin FOR IV SET ONLY Inactive Ulices 08/19/2013 [facility] Zofran 4 mg, 2 mL, Route: IV, Drug form: INJ, Q8H, Dosing Weight 77.273, kg, PRN Nausea, Start date: 08/18/13 16:23:00, Duration: 30 day, Stop date: 09/17/13 16:22:00(Same as: Zofran) No Longer Active Indra 08/18/2013 [facility] multivitamin 1 tab, PO, Daily, Substitution Allowed, Maintenance No Longer Active 08/18/2013 [facility] [place] 10/325 oral tablet 1 tab, Route: PO, Drug Form: TAB, Dosing Weight 77.273, kg, Q4H, Start date: 08/18/13 12:00:00, Duration: 30 day, Stop date: 09/17/13 8:00:00Do not exceed 4gm/day of acetaminophen. (Same as: [place] 325/10) No Longer Active Ulices 08/18/2013 [facility] Dilaudid 0.5 mg, 0.25 mL, Route: IV, Drug form: INJ, Q3H, Dosing Weight 77.273, kg, PRN Pain, Start date: 08/18/13 10:11:00, Duration: 30 day, Stop date: 09/17/13 10:10:00(Same as: Dilaudid) No Longer Active [facility] 08/18/2013 [facility] Lovenox 30 mg, 0.3 mL, Route: SUB-Q, Drug form: INJ, [id number], Dosing Weight 77.273, kg, Start date: 08/18/13 10:00:00, Duration: 30 day, Stop date: 09/16/13 22:00:00(Same as: Lovenox) No Longer Active Ulices 08/18/2013 [facility] hydromorphone 0.5 mg, 0.25 mL, Route: IVP, Drug form: INJ, Q5Min, Dosing Weight 77.273, kg, PRN Pain Score 7-10, Start date: 08/18/13 9:46:00, Duration: 5 doses or times, Stop date: Limited # of times(Same as: Dil audid) No Longer Active Thalia 08/18/2013 [facility] ondansetron 4 mg, 2 mL, Route: IVP, Drug form: INJ, ONCE, Dosing Weight 77.273, kg, PRN Nausea & Vomiting, Start date: 08/18/13 9:46:00(Same as: Zofran) No Longer Active Tenino 08/18/2013 [facility] flumazenil 0.2 mg, 2 mL, Route: IVP, Drug form: INJ, PRN, Dosing Weight 77.273, kg, PRN Benzodiazepine Reversal, Initial dose, Start date: 08/18/13 9:46:00, Duration: 1 day, Stop date: 08/19/13 9:45:00(Same as: Romazicon) No Longer Active Tenino 08/18/2013 [facility] naloxone 0.04 mg, 0.1 mL, Route: IVP, Drug form: INJ, Q2MIN, Dosing Weight 77.273, kg, PRN Narcotic Reversal, Start date: 08/18/13 9:46:00, Duration: 8 doses or times, Stop date: Limited # of timesSame as Narcan No Longer Active Tenino 08/18/2013 [facility] acetaminophen-10 mg/mL INTRAVENOUS solution 1,000 mg, 100 mL, Route: IV, Drug form: INJ, ONCE, Dosing Weight 77.273, kg, PRN Pain Score 4-6, Start date: 08/18/13 9:46:00, Duration: 1 doses or times, Stop date: Limited # of times, Infuse over 15 minutes (for patient weight 50 kg or greater)Infuse over 15 minutes (for patient weight 50 kg or greater)Infuse over 15 minutes Do not exceed 4gm/day of acetaminophen No Longer Active Tenino 08/18/2013 [facility] acetaminophen-hydrocodone 300 mg-10 mg/15 mL oral liquid 15 mL, Route: PO, Drug Form: SOLN, Dosing Weight 77.273, kg, Q4H, PRN Pain Score 4-6, Start date: 08/18/13 9:46:00, Duration: 1 day, Stop date: 08/19/13 8:00:00Do not exceed 4gm/day of acetaminophen. (Same as: Zolvit) No Longer Active Tenino 08/18/2013 [facility] tramadol 50 mg oral tablet 50 mg, 1 tab, Route: PO, Drug form: TAB, Q6H, Dosing Weight 77.273, kg, PRN as needed for pain, Start date: 08/18/13 9:42:00, Duration: 30 day, Stop date: 09/17/13 9:41:00Not to exceed 400mg/day. (Same As: Ultram) No Longer Active [facility] 08/18/2013 [facility] morphine Sulfate 2 mg, 1 mL, Route: IVP, Drug form: INJ, Q2H, Dosing Weight 77.273, kg, PRN Pain, Start date: 08/18/13 9:42:00, Duration: 30 day, Stop date: 09/17/13 9:41:00(Same as:MORPhine Sulfate) Inactive [facility] 08/18/2013 [facility] Benadryl 25 mg, 1 cap, Route: PO, Drug form: CAP, TID, Dosing Weight 77.273, kg, PRN Itching, Start date: 08/18/13 9:40:00, Duration: 30 day, Stop date: 09/17/13 9:39:00(Same as: Benadryl) No Longer Active [facility] 08/18/2013 [facility] vancomycin + Sodium Chloride 0.9% IV 250 mL 1.5 gm, Route: IVPB, Drug form: INJ, ONCE, Start date: 08/18/13 2:30:00, Stop date: 08/18/13 2:30:00(Same As: Vancocin) Vancomycin FOR IV SET ONLY Inactive Zach 08/18/2013 [facility] normal saline 0.9% IV 1,000 mL 1,000 mL, Rate: 125 ml/hr, Infuse over: 8 hr, Route: IV, Dosing Weight 77.273 kg, Total Volume: 1,000, Priority: STAT, Start date: 08/18/13 0:32:00, Duration: 1 doses or times, Stop date: 08/18/13 8:31:00 Inactive Zach 08/18/2013 [facility] [place] 10/325 oral tablet 2 tab, Route: PO, Drug Form: TAB, Dosing Weight 77.273, kg, Q4H, PRN as needed for pain, Start date: 08/18/13 0:32:00, Duration: 30 day, Stop date: 09/17/13 0:31:00Do not exceed 4gm/day of acetaminophen. (Same as: [place] 325/10) No Longer Active Zach 08/18/2013 [facility] Zosyn 3.375 gm, Route: IVPB, Drug form: PDR/INJ, Q8H, Dosing Weight 77.273, kg, Priority: STAT, Start date: 08/18/13 0:31:00, Duration: 30 day, Stop date: 09/17/13 0:00:00(Same as: Zosyn) Dosing based on Piperacillin component No Longer Active Ulices 08/18/2013 [facility] [place] 10/325 oral tablet 1 tab, Route: PO, Dosing Weight 77.273, kg, ONCE, Start date: 08/17/13 21:42:00, Stop date: 08/17/13 21:42:00 Inactive Ananda 08/18/2013 [facility] Dilaudid 1 mg, Route: IV, ONCE, Dosing Weight 77.273, kg, Start date: 08/17/13 21:42:00, Stop date: 08/17/13 21:42:00 Inactive Ananda 08/18/2013 [facility] Sodium Chloride 0.9% (Bolus) IV 2000 mL 2,000 mL, Rate: 2,000 ml/hr, Infuse over: 1 hr, Route: IV, Dosing Weight 77.273 kg, Total Volume: 2,000, Priority: STAT, Start date: 08/17/13 20:37:00, Duration: 1 doses or times, Stop date: 08/17/13 21:36:00, Bolus DoseBolus Dose Inactive Ananda 08/18/2013 [facility] clindamycin 600 mg, 4 mL, Route: IVPB, Drug form: INJ, ONCE, Dosing Weight 77.273, kg, Priority: STAT, Start date: 08/17/13 19:40:00, Stop date: 08/17/13 19:40:00(clindamycin 150 mg/1 ml (600 mg/4 ml VL) INJ) ( Same As: Cleocin) Inactive Ananda 08/18/2013 [facility] Zofran 4 mg, 2 mL, Route: IVP, Drug form: INJ, ONCE, Dosing Weight 77.273, kg, Priority: STAT, Start date: 08/17/13 19:33:00, Stop date: 08/17/13 19:33:00(Same as: Zofran) Inactive Joaquín 08/18/2013 [facility] Dilaudid 1 mg, 0.5 mL, Route: IV, Drug form: INJ, ONCE, Dosing Weight 77.273, kg, Start date: 08/17/13 19:33:00, Stop date: 08/17/13 19:33:00(Same as: Dilaudid) Inactive Joaquín 08/18/2013 [facility] Keflex 500 mg oral capsule 500 mg, 1 cap, PO, QID, 40 cap, Substitution Allowed, CAP Active Enrico 08/13/2013 [facility] [place] 10/325 oral tablet 2 tab, PO, Q4H, PRN, 40 tab, 1, 1, as needed for pain, Substitution Allowed, Maintenance, TAB Active Enrico 08/13/2013 [facility] trazodone 100 mg oral tablet 100 mg, 1 tab, PO, Bedtime, PRN, Insomnia, Substitution Allowed Active 08/12/2013 [facility] Lexapro 20 mg oral tablet 20 mg, 1 tab, PO, Daily, 30 tab, Substitution Allowed, TAB Active 08/12/2013 [facility] potassium citrate 5 mEq oral extended release tablet 5 mEq, 1 tab, PO, TID, Substitution Allowed Active 08/12/2013 [facility] Livalo 2 mg oral tablet 2 mg, 1 tab, PO, Daily, Substitution Allowed Active 08/12/2013 [facility] levothyroxine 25 mcg (0.025 mg) oral tablet 25 microgram, 1 tab, PO, Daily, 30 tab, Substitution Allowed, TAB Active 08/12/2013 [facility] metoprolol 25 mg oral tablet, extended release 25 mg, 1 tab, PO, BID, Substitution Allowed Active 08/12/2013 [facility] Dilaudid 0.5 mg, 0.25 mL, Route: IV, Drug form: INJ, Q3H, Dosing Weight 77.273, kg, PRN Pain, Start date: 08/12/13 10:24:00, Duration: 30 day, Stop date: 09/11/13 10:23:00(Same as: Dilaudid) No Longer Active Enrico 08/12/2013 [facility] influenza virus vaccine, inactivated 0.5 mL, Route: IM, Drug Form: SUSP, Start date: 08/12/13 9:00:00, Stop date: 08/12/13 9:00:00 Inactive SYSTEM 08/12/2013 [facility] [place] 10/325 oral tablet 1 tab, Route: PO, Dosing Weight 77.273, kg, ONCE, Start date: 08/12/13 0:55:00, Stop date: 08/12/13 0:55:00 Inactive [facility] 08/12/2013 [facility] hydromorphone 1 mg, Route: IVP, ONCE, Dosing Weight 77.273, kg, Priority: STAT, Start date: 08/12/13 0:55:00, Stop date: 08/12/13 0:55:00 Inactive [facility] 08/12/2013 [facility] Ancef + Sodium Chloride 0.9% IV 100 mL 2 gm, Route: IV, Drug form: PDR/INJ, [id number], Dosing Weight 77.273, kg, Start date: 08/11/13 23:00:00, Duration: 30 day, Stop date: 09/10/13 18:00:00(Same As: Ancef, Kefzol) No Longer Active [facility] 08/12/2013 [facility] hydromorphone 1 mg, Route: IVP, ONCE, Dosing Weight 77.273, kg, Priority: STAT, Start date: 08/11/13 22:55:00, Stop date: 08/11/13 22:55:00 Inactive [facility] 08/12/2013 [facility] Zofran 4 mg, 2 mL, Route: IV, Drug form: INJ, Q6H, Dosing Weight 77.273, kg, PRN as needed for nausea/vomiting, Start date: 08/11/13 22:24:00, Duration: 30 day, Stop date: 09/10/13 22:23:00(Same as: Zofran) No Longer Active [facility] 08/12/2013 [facility] [place] 10/325 oral tablet 2 tab, Route: PO, Drug Form: TAB, Dosing Weight 77.273, kg, Q4H, PRN as needed for pain, Start date: 08/11/13 22:23:00, Duration: 30 day, Stop date: 09/10/13 22:22:00Do not exceed 4gm/day of acetaminophen. (Same as: [place] 325/10) No Longer Active Enrico 08/12/2013 [facility] LR IV 1,000 mL 1,000 mL, Rate: 100 ml/hr, Infuse over: 10 hr, Route: IV, Dosing Weight 77.273 kg, Total Volume: 1,000, Start date: 08/11/13 22:22:00, Duration: 30 day, Stop date: 09/10/13 22:21:00 No Longer Active Enrico 08/12/2013 [facility] [place] 10/325 oral tablet 1 tab, Route: PO, Drug Form: TAB, Dosing Weight 77.273, kg, ONCE, Start date: 08/11/13 19:53:00, Stop date: 08/11/13 19:53:00Do not exceed 4gm/day of acetaminophen. (Same as: [place] 325/10) Inactive Trivedi 08/12/2013 [facility] Dilaudid 1 mg, 0.5 mL, Route: IV, Drug form: INJ, ONCE, Dosing Weight 77.273, kg, Start date: 08/11/13 19:53:00, Stop date: 08/11/13 19:53:00(Same as: Dilaudid) Inactive Trivedi 08/12/2013 [facility] fentanyl 50 microgram, Route: IVP, ONCE, Dosing Weight 77.273, kg, Priority: STAT, Start date: 08/11/13 18:25:00, Stop date: 08/11/13 18:25:00 Inactive July 08/11/2013 [facility] morphine Sulfate 4 mg, 1 mL, Route: IVP, Drug form: INJ, ONCE, Dosing Weight 77.273, kg, Priority: STAT, Start date: 08/11/13 17:14:00, Stop date: 08/11/13 17:14:00(Same as:MORPhine Sulfate) Inactive July 08/11/2013 [facility] Ancef + Sodium Chloride 0.9% IV 100 mL 2 gm, Route: IVPB, ONCE, Dosing Weight 77.273, kg, Priority: STAT, Start date: 08/11/13 16:14:00, Stop date: 08/11/13 16:14:00(Same As: Ancef, Kefzol) Inactive Hoot 08/11/2013 [facility] Dilaudid 1 mg, Route: IV, ONCE, Dosing Weight 77.273, kg, Start date: 08/11/13 15:25:00, Stop date: 08/11/13 15:25:00 Inactive Hoot 08/11/2013 [facility] Boostrix (Tdap) 0.5 ml, Route: IM, Dosing Weight 77.273, kg, ONCE, Start date: 08/11/13 15:18:00, Stop date: 08/11/13 15:18:00 Inactive [facility] 08/11/2013 [facility] hydromorphone 2 mg, 1 mL, Route: IVP, Drug form: INJ, ONCE, Dosing Weight 79.545, kg, Priority: STAT, Start date: 08/11/13 15:07:00, Stop date: 08/11/13 15:07:00(Same as: [facility]audid) [facility] Zofran 4 mg, 2 mL, Route: IVP, Drug form: INJ, ONCE, Dosing Weight 79.545, kg, Priority: STAT, Start date: 08/11/13 15:06:00, Stop date: 08/11/13 15:06:00(Same as: Zofran) Inactive [facility] 08/11/2013 [facility] Allergies, Adverse Reactions, Alerts Substance Category Reaction Severity Reaction type Status Date Reported Comments Source codeine drug allergy Allergy [facility] Phenergan drug allergy Allergy [facility] Toradol drug allergy Allergy [facility] Immunizations Immunization Date Given Site Status Last Updated Comments Source influenza virus vaccine, inactivated 08/12/2013 completed Bashir Gonsalez [facility] diphtheria/pertussis, acel/tetanus adult 08/11/2013 completed Kasandra [facility] Results Order Name Results Value Reference Range Date Interpretation Comments Source CHEMISTRY eGFR 64 mL/min/1.73m2 08/18/2013 1Result Comment: The eGFR is calculated using [...] from the National Kidney Disease Education Program (NKDEP) which additionally recommends that when the eGFR is used in patients with extremes of body mass index for purposes of drug dosing, the eGFR should be multiplied by the estimated BMI. [facility] CHEMISTRY AGAP 9.2 meq/L 10.0 - 20.0 08/18/2013 LOW [facility] CHEMISTRY Calcium Lvl 7.8 mg/dL 8.5 - 10.5 08/18/2013 LOW [facility] CHEMISTRY Chloride Lvl 105 meq/L 95 - 109 08/18/2013 Normal [facility] CHEMISTRY Potassium Lvl 4.2 meq/L 3.5 - 5.1 08/18/2013 Normal [facility] CHEMISTRY Sodium Lvl 138 meq/L 135 - 145 08/18/2013 Normal [facility] CHEMISTRY Creatinine Lvl 1.3 mg/dL 0.5 - 1.4 08/18/2013 Normal [facility] CHEMISTRY CO2 28 meq/L 24 - 32 08/18/2013 Normal [facility] CHEMISTRY Glucose Lvl 105 mg/dL 70 - 99 08/18/2013 [place] 3Interpretive Data: Adult reference range values reflect the clinical guidelines of the [place] [employer]. [facility] CHEMISTRY BUN 13 mg/dL 7 - 22 08/18/2013 Normal [facility] CHEMISTRY Lactic Acid Lvl 0.6 mMol/L 0.5 - 2.2 08/18/2013 Normal [facility] CHEMISTRY eGFR 54 mL/min/1.73m2 08/18/2013 2Result Comment: The eGFR is calculated using [...] from the National Kidney Disease Education Program (NKDEP) which additionally recommends that when the eGFR is used in patients with extremes of body mass index for purposes of drug dosing, the eGFR should be multiplied by the estimated BMI. [facility] CHEMISTRY Calcium Lvl 8.9 mg/dL 8.5 - 10.5 08/18/2013 Normal [facility] CHEMISTRY Creatinine Lvl 1.5 mg/dL 0.5 - 1.4 08/18/2013 [facility] CHEMISTRY CO2 28 meq/L 24 - 32 08/18/2013 Normal [facility] CHEMISTRY Chloride Lvl 100 meq/L 95 - 109 08/18/2013 Normal [facility] CHEMISTRY Potassium Lvl 4.2 meq/L 3.5 - 5.1 08/18/2013 Normal [facility] CHEMISTRY Sodium Lvl 137 meq/L 135 - 145 08/18/2013 Normal [facility] CHEMISTRY BUN 11 mg/dL 7 - 22 08/18/2013 Normal [facility] CHEMISTRY Glucose Lvl 101 mg/dL 70 - 99 08/18/2013 [place] 4Interpretive Data: Adult reference range values reflect the clinical guidelines of the [place] [employer]. [facility] CHEMISTRY AGAP 13.2 meq/L 10.0 - 20.0 08/18/2013 Normal [facility] CHEMISTRY Lactic Acid Lvl 3.4 mMol/L 0.5 - 2.2 08/18/2013 [facility] HEMATOLOGY Basophils # 0.1 K/CMM 0.0 - 0.2 08/18/2013 Normal [facility] HEMATOLOGY Eosinophils # 0.6 K/CMM 0.0 - 0.5 08/18/2013 [facility] HEMATOLOGY Segs-Bands # 4.9 K/CMM 1.5 - 8.1 08/18/2013 [facility] HEMATOLOGY Lymphocytes # 2.9 K/CMM 1.0 - 5.5 08/18/2013 [facility] HEMATOLOGY Monocytes # 0.8 K/CMM 0.0 - 0.8 08/18/2013 [facility] HEMATOLOGY Basophils 0.6 % 0.0 - 1.0 08/18/2013 [facility] HEMATOLOGY Segs 54.0 % 45.0 - 75.0 08/18/2013 Normal [facility] HEMATOLOGY Lymphocytes 31.0 % 20.0 - 40.0 08/18/2013 Normal [facility] HEMATOLOGY Monocytes 8.3 % 2.0 - 12.0 08/18/2013 Normal [facility] HEMATOLOGY Eosinophils 6.1 % 0.0 - 4.0 08/18/2013 [facility] HEMATOLOGY RDW 12.3 % 11.5 - 14.5 08/18/2013 Normal [facility] HEMATOLOGY Platelet 265 K/CMM 133 - 450 08/18/2013 Normal [facility] HEMATOLOGY MPV 8.0 fL 7.4 - 10.4 08/18/2013 Normal [facility] HEMATOLOGY MCH 32.0 pg 27.0 - 31.0 08/18/2013 [facility] HEMATOLOGY MCHC 33.3 g/dL 32.0 - 36.0 08/18/2013 Normal [facility] HEMATOLOGY Hct 38.2 % 42.0 - 54.0 08/18/2013 LOW [facility] HEMATOLOGY MCV 96.1 fL 80.0 - 94.0 08/18/2013 [facility] HEMATOLOGY RBC X 10x6 3.98 M/CMM 4.70 - 6.10 08/18/[address] [facility] HEMATOLOGY WBC X 10x3 9.3 K/CMM 3.7 - 10.4 08/18/2013 Normal [facility] HEMATOLOGY Hgb 12.7 g/dL 14.0 - 18.0 08/18/2013 LOW [facility] HEMATOLOGY PROTIME 13.0 s 12.0 - 14.7 08/18/2013 Normal [facility] HEMATOLOGY INR 0.99 0.85 - 1.17 08/18/2013 Normal 5Interpretive Data: RECOMMENDED RANGES FOR PROTIME INR: 2.0-3.0 for most medical and surgical thromboembolic states. 2.5-3.5 for artificial heart valves and recurrent embolism. INR SHOULD BE USED ONLY FOR PATIENTS ON STABLE ANTICOAGULANT THERAPY. [facility] HEMATOLOGY aPTT 36.3 s 22.9 - 35.8 08/18/2013 [place] 6Interpretive Data: Heparin Therapeutic Range: 57 - 92 Seconds [facility] BLOOD BANK RESULTS Antibody Scrn Negative (08/17/2013 19:40:00) 08/18/2013 Normal [facility] BLOOD BANK RESULTS ABO/Rh A NEG 08/18/2013 [facility] HEMATOLOGY Sed Rate 33 mm/h 0 - 15 08/18/2013 [facility] IMMUNOLOGY CRP, High Sensitivity 16.3 mg/L 08/18/2013 7Interpretive Data: Low Risk: <1.0 mg/L Average Risk: 1.0 - 3.0 mg/L High Risk: >3.0 mg/L Inflammation: >10.0 mg/L [facility] Foot series Foot series EXAM: LEFT FOOT 3 VIEWS DATE: Aug 17, 2013 08:38:00 PM INDICATION: Swelling COMPARISON: 08/12/2013. TECHNIQUE: AP, lateral and oblique radiographs of the left foot are interpreted without comparison. FINDINGS: No fracture or dislocation is identified. Removal of splint. Persistence of soft tissue density with metallic debris between the first and second metatarsal heads with surrounding soft tissue swelling that has slightly decreased in a compared to prior exam. IMPRESSION: Persistence of soft tissue density with metallic debris between the first and second metatarsal heads with slight decrease in the degree of surrounding soft tissue swelling. 08/17/2013 - - This report was dictated by a Accounting Professional/Fellow. I have personally reviewed the images as well as the Resident's interpretation and agree with the findings. Read by: Andrzej Simmons Resident: Andrzej Simmons Dictated Date/time: 08/17/13 20:39 Electronically Signed by: Tahir Blandon MD 08/17/13 22:52 FINAL REPORT [facility] CHEMISTRY eGFR 88 mL/min/1.73m2 08/12/2013 1Result Comment: The eGFR is calculated using [...] from the National Kidney Disease Education Program (NKDEP) which additionally recommends that when the eGFR is used in patients with extremes of body mass index for purposes of drug dosing, the eGFR should be multiplied by the estimated BMI. [facility] CHEMISTRY Calcium Lvl 8.4 mg/dL 8.5 - 10.5 08/12/2013 LOW [facility] CHEMISTRY Creatinine Lvl 1.0 mg/dL 0.5 - 1.4 08/12/2013 Normal [facility] CHEMISTRY BUN 12 mg/dL 7 - 22 08/12/2013 Normal [facility] CHEMISTRY Sodium Lvl 141 meq/L 135 - 145 08/12/2013 Normal [facility] CHEMISTRY Glucose Lvl 87 mg/dL 70 - 99 08/12/2013 Normal 3Interpretive Data: Adult reference range values reflect the clinical guidelines of the [place] [employer]. [facility] CHEMISTRY Chloride Lvl 102 meq/L 95 - 109 08/12/2013 Normal [facility] CHEMISTRY CO2 31 meq/L 24 - 32 08/12/2013 Normal [facility] CHEMISTRY Potassium Lvl 4.2 meq/L 3.5 - 5.1 08/12/2013 Normal [facility] CHEMISTRY AGAP 12.2 meq/L 10.0 - 20.0 08/12/2013 Normal [facility] HEMATOLOGY Basophils # 0.1 K/CMM 0.0 - 0.2 08/12/2013 Normal [facility] HEMATOLOGY Lymphocytes # 2.7 K/CMM 1.0 - 5.5 08/12/2013 Normal [facility] HEMATOLOGY Monocytes # 1.1 K/CMM 0.0 - 0.8 08/12/2013 HI [facility] HEMATOLOGY Eosinophils # 0.5 K/CMM 0.0 - 0.5 08/12/2013 Normal [facility] HEMATOLOGY Segs-Bands # 8.0 K/CMM 1.5 - 8.1 08/12/2013 Normal [facility] HEMATOLOGY Segs 64.8 % 45.0 - 75.0 08/12/2013 Normal [facility] HEMATOLOGY Lymphocytes 21.8 % 20.0 - 40.0 08/12/2013 Normal [facility] HEMATOLOGY Monocytes 8.7 % 2.0 - 12.0 08/12/2013 Normal [facility] HEMATOLOGY Eosinophils 4.1 % 0.0 - 4.0 08/12/2013 [facility] HEMATOLOGY Basophils 0.6 % 0.0 - 1.0 08/12/2013 Normal [facility] HEMATOLOGY PROTIME 13.4 s 12.0 - 14.7 08/12/2013 Normal [facility] HEMATOLOGY aPTT 32.0 s 22.9 - 35.8 08/12/2013 Normal 7Interpretive Data: Heparin Therapeutic Range: 57 - 92 Seconds [facility] HEMATOLOGY INR 1.03 0.85 - 1.17 08/12/2013 Normal 5Interpretive Data: RECOMMENDED RANGES FOR PROTIME INR: 2.0-3.0 for most medical and surgical thromboembolic states. 2.5-3.5 for artificial heart valves and recurrent embolism. INR SHOULD BE USED ONLY FOR PATIENTS ON STABLE ANTICOAGULANT THERAPY. [facility] HEMATOLOGY WBC X 10x3 12.3 K/CMM 3.7 - 10.4 08/12/2013 [facility] HEMATOLOGY RBC X 10x6 3.91 M/CMM 4.70 - 6.10 08/12/[address] [facility] HEMATOLOGY MCV 97.9 fL 80.0 - 94.0 08/12/2013 [facility] HEMATOLOGY MCH 33.7 pg 27.0 - 31.0 08/12/2013 [facility] HEMATOLOGY MCHC 34.5 g/dL 32.0 - 36.0 08/12/2013 [facility] HEMATOLOGY Hgb 13.2 g/dL 14.0 - 18.0 08/12/[address] [facility] HEMATOLOGY Hct 38.3 % 42.0 - 54.0 08/12/[address] [facility] HEMATOLOGY RDW 13.3 % 11.5 - 14.5 08/12/2013 Normal [facility] HEMATOLOGY MPV 8.3 fL 7.4 - 10.4 08/12/2013 Normal [facility] HEMATOLOGY Platelet 207 K/CMM 133 - 450 08/12/2013 [facility] CHEMISTRY eGFR 78 mL/min/1.73m2 08/11/2013 2Result Comment: The eGFR is calculated using [...] from the National Kidney Disease Education Program (NKDEP) which additionally recommends that when the eGFR is used in patients with extremes of body mass index for purposes of drug dosing, the eGFR should be multiplied by the estimated BMI. [facility] CHEMISTRY Calcium Lvl 8.9 mg/dL 8.5 - 10.5 08/11/2013 Normal [facility] CHEMISTRY CO2 24 meq/L 24 - 32 08/11/2013 Normal [facility] CHEMISTRY Chloride Lvl 103 meq/L 95 - 109 08/11/2013 Normal [facility] CHEMISTRY Potassium Lvl 3.7 meq/L 3.5 - 5.1 08/11/2013 Normal [facility] CHEMISTRY Sodium Lvl 136 meq/L 135 - 145 08/11/2013 Normal [facility] CHEMISTRY Glucose Lvl 109 mg/dL 70 - 99 08/11/2013 CO 4Interpretive Data: Adult reference range values reflect the clinical guidelines of the [place] [employer]. [facility] CHEMISTRY BUN 12 mg/dL 7 - 22 08/11/2013 Normal [facility] CHEMISTRY Creatinine Lvl 1.1 mg/dL 0.5 - 1.4 08/11/2013 Normal [facility] CHEMISTRY AGAP 12.7 meq/L 10.0 - 20.0 08/11/2013 Normal [facility] HEMATOLOGY aPTT 30.9 s 22.9 - 35.8 08/11/2013 Normal 8Interpretive Data: Heparin Therapeutic Range: 57 - 92 Seconds [facility] HEMATOLOGY MCHC 34.4 g/dL 32.0 - 36.0 08/11/2013 Normal [facility] HEMATOLOGY MCH 33.1 pg 27.0 - 31.0 08/11/2013 [facility] HEMATOLOGY MCV 96.3 fL 80.0 - 94.0 08/11/2013 [facility] HEMATOLOGY Hgb 13.6 g/dL 14.0 - 18.0 08/11/2013 LOW [facility] HEMATOLOGY Platelet 230 K/CMM 133 - 450 08/11/2013 Normal [facility] HEMATOLOGY Hct 39.6 % 42.0 - 54.0 08/11/[address] [facility] HEMATOLOGY RDW 12.9 % 11.5 - 14.5 08/11/2013 Normal [facility] HEMATOLOGY RBC X 10x6 4.11 M/CMM 4.70 - 6.10 08/11/2013 LOW [facility] HEMATOLOGY WBC X 10x3 9.9 K/CMM 3.7 - 10.4 08/11/2013 Normal [facility] HEMATOLOGY MPV 8.8 fL 7.4 - 10.4 08/11/2013 Normal [facility] HEMATOLOGY PROTIME 13.0 s 12.0 - 14.7 08/11/2013 Normal [facility] HEMATOLOGY INR 0.99 0.85 - 1.17 08/11/2013 Normal 6Interpretive Data: RECOMMENDED RANGES FOR PROTIME INR: 2.0-3.0 for most medical and surgical thromboembolic states. 2.5-3.5 for artificial heart valves and recurrent embolism. INR SHOULD BE USED ONLY FOR PATIENTS ON STABLE ANTICOAGULANT THERAPY. [facility] HEMATOLOGY Basophils # 0.2 K/CMM 0.0 - 0.2 08/11/2013 Normal [facility] HEMATOLOGY Monocytes # 0.9 K/CMM 0.0 - 0.8 08/11/2013 [facility] HEMATOLOGY Eosinophils # 0.5 K/CMM 0.0 - 0.5 08/11/2013 Normal [facility] HEMATOLOGY Monocytes 8.6 % 2.0 - 12.0 08/11/2013 Normal [facility] HEMATOLOGY Lymphocytes 19.3 % 20.0 - 40.0 08/11/2013 LOW [facility] HEMATOLOGY Lymphocytes # 1.9 K/CMM 1.0 - 5.5 08/11/2013 Normal [facility] HEMATOLOGY Segs-Bands # 6.4 K/CMM 1.5 - 8.1 08/11/2013 Normal [facility] HEMATOLOGY Segs 65.5 % 45.0 - 75.0 08/11/2013 Normal [facility] HEMATOLOGY Basophils 1.8 % 0.0 - 1.0 08/11/2013 [facility] HEMATOLOGY Eosinophils 4.8 % 0.0 - 4.0 08/11/2013 [facility] IMMUNOLOGY CDC-HIV 1/2 Ab Negative *NA* (08/11/2013 15:11:00) Negative 08/11/2013 [facility] BLOOD BANK RESULTS ABO/Rh A NEG 08/11/2013 [facility] BLOOD BANK RESULTS Antibody Scrn Negative (08/11/2013 15:10:00) 08/11/2013 Normal [facility] Vital Signs Vital Sign Value Date Comments Source Respitory Rate 18 08/20/2013 [facility] Heart Rate 52 08/20/2013 [facility] Temperature Oral (F) 97.9 F 08/20/2013 [facility] Systolic (mm Hg) 126 08/20/2013 [facility] Diastolic (mm Hg) 72 08/20/2013 [facility] Temperature Oral (F) 98.1 F 08/20/2013 [facility] Respitory Rate 18 08/20/2013 [facility] Systolic (mm Hg) 112 08/20/2013 [facility] Heart Rate 77 08/20/2013 [facility] Diastolic (mm Hg) 60 08/20/2013 [facility] Systolic (mm Hg) 104 08/20/2013 [facility] Diastolic (mm Hg) 56 08/20/2013 [facility] Respitory Rate 18 08/20/2013 [facility] Heart Rate 54 08/20/2013 [facility] Temperature Oral (F) 98.1 F 08/20/2013 [facility] Weight 77.273 08/18/2013 [facility] Height 167.64 cm 08/18/2013 [facility] Height 167.64 cm 08/18/2013 [facility] Weight 77.273 08/18/2013 [facility] Weight 77.273 08/18/2013 [facility] Height 167.64 cm 08/18/2013 [facility] Diastolic (mm Hg) 65 08/13/2013 [facility] Respitory Rate 18 08/13/2013 [facility] Systolic (mm Hg) 107 08/13/2013 [facility] Temperature Oral (F) 99 F 08/13/2013 [facility] Heart Rate 74 08/13/2013 [facility] Heart Rate 64 08/13/2013 [facility] Respitory Rate 18 08/13/2013 [facility] Temperature Oral (F) 97.9 F 08/13/2013 [facility] Systolic (mm Hg) 108 08/13/2013 [facility] Diastolic (mm Hg) 59 08/13/2013 [facility] Diastolic (mm Hg) 69 08/13/2013 [facility] Respitory Rate 18 08/13/2013 [facility] Temperature Oral (F) 99.3 F 08/13/2013 [facility] Systolic (mm Hg) 110 08/13/2013 [facility] Heart Rate 74 08/13/2013 [facility] Height 167.64 cm 08/11/2013 [facility] Weight 77.273 08/11/2013 [facility] Encounters Location Location Details Encounter Type Encounter Number Reason For Visit Attending Provider ADM Date DC Date Status Source [facility] Inpatient [id number] LLE CELLULITIS JOSSELINE TEIXEIRA 08/18/2013 08/20/2013 Active [facility] Procedures Procedure Code Date Perfomer Comments Source Excisional Debridement of Wound, Infection, or Burn 86.22 08/18/2013 [facility] Ankle reoperations [id number] [facility] Rotator cuff repair [id number] [facility] Cholecystectomy [id number] [facility]
--- OUTSIDE RECORDS SUMMARY | 2018-11-15 10:12 | XMS REPORT | CCD ---
Author Author Auto Generated Organization [facility] Address Unknown Phone Unavailable Care Team Providers Care Home Visits Nurse Name Role Phone Tera Osuna CP Allergies, [...] 9:41:00Not to exceed 400mg/day. (Same As: Ultram) [place] 10/325 oral 1 tab, Route: PO, Drug Form: TAB, 08/18/2013 08/20/2013 Discontinued tablet Dosing Weight 77.273, kg, Q4H, Start date: 08/18/13 12:00:00, Duration: 30 day, Stop date: 09/17/13 8:00:00Do not exceed 4gm/day of acetaminophen. (Same as: [place] 325/10) morphine Sulfate 2 mg, 1 mL, [...] day, Stop date: 09/17/13 16:22:00(Same as: Zofran) [place] 10 oral 1 tab, Route: PO, Dosing [...] date: 08/17/13 21:36:00, Bolus Dose Bolus Dose [place] 5/325 oral 1-2 tab, PO, Q4-6H, PRN, [...] SUB-Q, Drug 08/18/2013 08/20/2013 Discontinued form: INJ, [id number], Dosing Weight 77.273, kg, Start date: 08/18/13 10:00:00, Duration: 30 day, Stop date: 09/16/13 22:00:00(Same as: Lovenox) Keflex 500 mg oral 500 mg, 1 cap, PO, QID, 40 cap, 08/20/2013 08/30/2013 Ordered capsule Substitution Allowed, CAP [place] 10/325 oral 2 tab, Route: PO, Drug Form: TAB, 08/18/2013 08/20/2013 Discontinued tablet Dosing Weight 77.273, kg, Q4H, PRN as needed for pain, Start date: 08/18/13 0:32:00, Duration: 30 day, Stop date: 09/17/13 0:31:00Do not exceed 4gm/day of acetaminophen. (Same as: [place] 325/10) Zosyn 3.375 gm, Route: IVPB, Drug form: 08/18/2013 08/19/2013 Discontinued PDR/INJ, Q8H, Dosing Weight 77.273, kg, Priority: STAT, Start date: 08/18/13 0:31:00, Duration: 30 day, Stop date: 09/17/13 0:00:00(Same as: Zosyn) Dosing based on Piperacillin component vancomycin + Sodium 1.5 gm, Route: IVPB, Drug form: 08/19/2013 08/19/2013 Discontinued Chloride 0.9% IV 250 INJ, [id number], Start date: 08/19/13 mL 2:30:00, Duration: 30 [...] values reflect the clinical guidelines of the [place] [employer]. 4Interpretive Data: Adult reference range values reflect the clinical guidelines of the [place] [employer]. HEMATOLOGY Most recent to oldest [...] Days Procedures Procedures Date Related Diagnosis Cholecystectomy Excisional Debridement of Wound, Infection, or Burn 08/18/2013 00:00:00
--- OUTSIDE RECORDS SUMMARY | 2018-11-15 10:13 | XMS REPORT | Continuity of Care Document ---
Author Author [facility] Address [address] [place] [address] ;[phone] Care Team Providers Care Production Superintendent Name Role Phone SOBIA HERNADEZ Admphys SOBIA HERNA[facility] Admission Diagnosis Code Admission Diagnosis Date Abdominal pain Social History Element Description Code Description Smoking Status Code System Start Date End Date Smoking Status [id number] Never smoker SNOMED-CT Problems Code Code System Problem Name Start Date End Date Status 171652521 SNOMED-CT Left flank pain 09/20/2017 Active 91883536 SNOMED-CT Blood in urine 09/20/2017 Active 50342947 SNOMED-CT Hypercholesterolemia 09/19/2017 Active 07824592 SNOMED-CT Hypertensive disorder 09/19/2017 Active 40706369 SNOMED-CT Hypertensive disorder 2011 Active 43651020 SNOMED-CT Urolithiasis 1982 Active 81198060 SNOMED-CT Urolithiasis u Active Medications RxNorm Medication Dose Route Instructions Indications Start Date End Date Status 350743 Acetaminophen 300 MG / Codeine Phosphate 60 MG Oral Tablet 1 tablet Oral orally every 6 hours Active 754647 Lisinopril 10 MG Oral Tablet 10 milligram Oral orally every day Active 395222 Metoprolol Tartrate 25 MG Oral Tablet 25 milligram Feeding Tube via feeding tube 2 times per day Active naturethroid 130 once daily before breakfast Active 955536 Promethazine Hydrochloride 25 MG Oral Tablet 25 milligram Oral orally every 6 hours as needed. nausea and vomiting Active 612985 rosuvastatin Oral orally every day Active Allergies * No Known Allergies Results Laboratory Results Order: URINALYSIS W/O MICROSCOPIC EXAM LOINC Test Result Flag Range Unit Date 5778-04 1Color:Type:Pt:Urine:Nom [place] A Lt. Yellow 09/19/2017 23:49 5767-9 1Appearance:Aper:Pt:Urine:Nom Cloudy 09/19/2017 23:49 2349-9 1Glucose:ACnc:Pt:Urine:Ord Negative Negative 09/19/2017 23:49 5770-3 1Bilirubin:ACnc:Pt:Urine:Ord:Test strip Small A Negative 09/19/2017 23:49 2514-8 1Ketones:ACnc:Pt:Urine:Ord:Test strip Trace A Negative 09/19/2017 23:49 5811-5 1Specific gravity:Rden:Pt:Urine:Qn:Test strip 1.025 A 1.005-1.030 09/19/2017 23:49 5794-3 1Hemoglobin:ACnc:Pt:Urine:Ord:Test strip Large A Negative 09/19/2017 23:49 5803-2 1pH:LsCnc:Pt:Urine:Qn:Test strip 6.0 A 4.5-8.0 09/19/2017 23:49 06312-4 1Protein:ACnc:Pt:Urine:Ord:Test strip 30 mg/dL A Negative 09/19/2017 23:49 5818-0 1Urobilinogen:ACnc:Pt:Urine:Ord:Test strip 0.2 E.U./dL A 0.2 09/19/2017 23:49 5802-4 1Nitrite:ACnc:Pt:Urine:Ord:Test strip Negative Negative 09/19/2017 23:49 5799-2 1Leukocyte esterase:ACnc:Pt:Urine:Ord:Test strip Negative Negative 09/19/2017 23:49 * Performing Lab Footnotes:* [facility] [id number] [address] [place] [address] [place] - : DIRECTOR ZULMA GARCIA Order: CBC PLATELET AUTO DIFF LOINC Test Result Flag Range Unit Date 00892-1 1Leukocytes^^corrected for nucleated erythrocytes:NCnc:Pt:Bld:Qn:Automated count 10.65 4.80-10.80 10^3/ul 09/19/2017 22:45 789-8 1Erythrocytes:NCnc:Pt:Bld:Qn:Automated count 5.03 4.70-6.10 10^6/ul 09/19/2017 22:45 718-7 1Hemoglobin:MCnc:Pt:Bld:Qn 17 14.0-18.0 gm/dl 09/19/2017 22:45 4544-3 1Hematocrit:VFr:Pt:Bld:Qn:Automated count 47.5 42.0-50.0 % 09/19/2017 22:45 787-2 1Erythrocyte mean corpuscular volume:EntVol:Pt:RBC:Qn:Automated count 94.4 H 80.0-94.0 fL 09/19/2017 22:45 785-6 1Erythrocyte mean corpuscular hemoglobin:EntMass:Pt:RBC:Qn:Automated count 33.8 H 27.0-31.0 pg 09/19/2017 22:45 786-4 1Erythrocyte mean corpuscular hemoglobin concentration:MCnc:Pt:RBC:Qn:Automated count 35.8 33.0-37.0 gm/dl 09/19/2017 22:45 788-0 1Erythrocyte distribution width:Ratio:Pt:RBC:Qn:Automated count 12.9 11.5-14.5 % 09/19/2017 22:45 777-3 1Platelets:NCnc:Pt:Bld:Qn:Automated count 240 130-400 10^3/ul 09/19/2017 22:45 80281-8 1Platelet mean volume:EntVol:Pt:Bld:Qn:Automated count 10.2 A 7.4-10.4 fL 09/19/2017 22:45 770-8 1Neutrophils/100 leukocytes:NFr:Pt:Bld:Qn:Automated count 58.9 42.0-75.0 % 09/19/2017 22:45 736-9 1Lymphocytes/100 leukocytes:NFr:Pt:Bld:Qn:Automated count 25.4 13.0-42.0 % 09/19/2017 22:45 5905-5 1Monocytes/100 leukocytes:NFr:Pt:Bld:Qn:Automated count 10.5 4.0-14.0 % 09/19/2017 22:45 713-8 1Eosinophils/100 leukocytes:NFr:Pt:Bld:Qn:Automated count 4 H 1.0-3.0 % 09/19/2017 22:45 706-2 1Basophils/100 leukocytes:NFr:Pt:Bld:Qn:Automated count 0.7 L 1.0-3.0 % 09/19/2017 22:45 1IG% 0.5 H 0.0-0.4 % 09/19/2017 22:45 1NRBC, Auto 0 0-2 /100WBC 09/19/2017 22:45 * Performing Lab Footnotes:* [address] [place] [address] - [id number] - [address] [place] [address] - MD: DIRECTOR ZULMA GARCIA Order: CMP COMPREHENSIVE METABOLIC PANEL LOINC Test Result Flag Range Unit Date 1Glucose 101 75-110 mg/dl 09/19/2017 22:45 1BUN 16 6.0-17.0 mg/dl 09/19/2017 22:45 1Creatinine 1.1 0.4-1.2 mg/dl 09/19/2017 22:45 1Sodium 141 137-145 mmol/l 09/19/2017 22:45 1Potassium 3.5 3.5-5.0 mmol/l 09/19/2017 22:45 1Chloride 101 98-107 mmol/l 09/19/2017 22:45 1CO2 28 22-30 mmol/l 09/19/2017 22:45 1Calcium 9.6 8.4-10.2 mg/dl 09/19/2017 22:45 1T Protein 7.9 5.1-8.7 gm/dl 09/19/2017 22:45 1Albumin 4.6 3.5-4.6 gm/dl 09/19/2017 22:45 1A/G Ratio 1.4 1.1-2.2 % 09/19/2017 22:45 1AST (SGOT) 32 11-36 U/L 09/19/2017 22:45 1ALT (SGPT) 41 H 11-40 U/L 09/19/2017 22:45 1Alkaline Phos 120 H 47-114 U/L 09/19/2017 22:45 1Total Bilirubin 1 0.2-1.2 mg/dl 09/19/2017 22:45 1Globulin 3.3 2.3-3.5 gm/dl 09/19/2017 22:45 1Calcium, Corrected 9.1 8.4-10.2 mg/dl 09/19/2017 22:45 Note: Various formulas exist for corrected serum calcium results, each yielding different values. This corrected result was based on the formula: Corrected Calcium=SerumCalcium + [0.8 * ( 4 - SerumAlbumin)] 1EGFR if >60 mL/min/1.73m^2 09/19/2017 22:45 1EGFR if Non- >60 mL/min/1.73m^2 09/19/2017 22:45 Note: Estimated Glomerular Filtration Rate (eGFR) Reference Intervals Decision Points for 18 years and older and average body mass: >=60 Does not exclude kidney disease. 30 - 59 Suggests moderate chronic kidney disease and indicates the need for further investigation including assessment of proteinuria and cardiovascular factors. < 30 Usually indicates a need for referral for assessment and management of chronic kidney failure. 1Anion Gap 12 09/19/2017 22:45 * Performing Lab Footnotes:* [address] [place] [address] - [id number] - [address] [place] [id number] [facility] - : DIRECTOR ZULMA GARCIA Radiology Results Order: [id number] CT ABD/ PELVIS W/O CON (RENAL STONE)* Exam Completion Date:09/19/2017 22:23 Procedure: CT ABD/ PELVIS W/O CON (RENAL STONE) Exam date: 09/19/2017 1 0:23 PMOrdering Provider: SOBIA Hunginical Indication: left flank painComp arison: NoneTechnique: Multiple axial helical CT images of the abdomen and pelvi s wereobtained . Coronal and sagittal reformatted images were also obtain ed.This exam was performed according to the our departmental dose-optimizationpr ogram which includes automated exposure control, adjustment of the mA and/orkV a ccording to patient size and/or use of iterative reconstruction techniques.Findi ngs:This the heart and visualized lung bases are unremarkable.Prior cholecystect claribel. Liver, spleen, pancreas, bilateral adrenal glands, andbilateral kidneys are unremarkable. Specifically, no radiopaque nephroureteralcalculi or evidence of hydroureteronephrosis.A prominent esophageal lymph node is noted on (series 2, i mage 19) measuring 1.0cm. Findings are similar compared to prior examination.Sma ll bowel is nonobstructive. No pneumoperitoneum.Patchy colonic stool. Surgical c lips at the base of the appendix presumablyrelating to prior appendectomy.Distal colon is collapsed. No free fluid in the pelvis. Prostate mildlyenlarged. Bladd er underdistended.Soft tissues are unremarkable. Osseous structures are nonacute .Impression:1. No CT evidence of acute intra-abdominal or pelvic abnormality.2. Mildly prominent esophageal lymph node, presumably reactive secondary toinflamma tory process such as esophagitis.This final report was electronically signed by Dr Zuleima Bynum MD 09/19/201711:25 PMDictated By: ZULEIMA BYNUMDate: 09/19/2017 23 :31 Vital Signs Vitals Value Date Respiratory Rate 20 09/20/2017 O2% BldC Oximetry 95 09/20/2017 BP Systolic 148 mmHg 09/20/2017 BP Diastolic 69 mmHg 09/20/2017 Body Temperature 97.9 F 09/19/2017 Height 67 in 09/19/2017 Weight Measured 210 lbs 09/19/2017 BSA (Body Surface Area) 2.07291 09/19/2017 BMI (Body Mass Index) 32.9 09/19/2017 Plan of Care * No data in the system Procedures Code Code System Procedure Name Target Site Date of Procedure CT ABD/ PELVIS W/O CON (RENAL STONE) 09/19/2017 23:31 LEFT ROTATOR CUFF 2007 RIGHT KNEE 2007 RIGHT KNEE 2006 Encounters Date Code Diagnosis Status (SNOMED-CT) - 74116876 UNSPECIFIED ABDOMINAL PAIN Active Immunizations Vaccine Code Code System Vaccine Name Date Status UTD Completed Functional Status Code Functional/Cognitive Condition Code System Date Status 241693835 Memory function normal SNOMED-CT 09/19/2017 Active 489263739 Orientated SNOMED-CT 09/19/2017 Active 698781449 Orientated SNOMED-CT 09/19/2017 Active 198388688 Orientated SNOMED-CT 09/19/2017 Active 140449250 Orientated SNOMED-CT 09/19/2017 Active 155508315 Mentally alert [facility] 09/19/2017 Active 586225603 Ability to perform activities of everyday life (observable entity) SNOMED-CT 09/19/2017 Active 414885816 Oriented to person [facility] 09/19/2017 Active 762291173 Stable gait (finding) SNOMED-CT 09/19/2017 Active Hospital Discharge Instructions * No data in the system
--- OUTSIDE RECORDS SUMMARY | 2018-11-15 10:13 | XMS REPORT | CCD ---
Author Author Auto Generated Organization [facility] Address Unknown Phone Unavailable Care Team Providers Care Medical Research Scientist Name Role Phone Tera Osuna CP Allergies, [...] 9:41:00Not to exceed 400mg/day. (Same As: Ultram) [place] 10/325 oral 1 tab, Route: PO, Drug Form: TAB, 08/18/2013 08/20/2013 Discontinued tablet Dosing Weight 77.273, kg, Q4H, Start date: 08/18/13 12:00:00, Duration: 30 day, Stop date: 09/17/13 8:00:00Do not exceed 4gm/day of acetaminophen. (Same as: [place] 325/10) morphine Sulfate 2 mg, 1 mL, [...] day, Stop date: 09/17/13 16:22:00(Same as: Zofran) [place] 10 oral 1 tab, Route: PO, Dosing [...] date: 08/17/13 21:36:00, Bolus Dose Bolus Dose [place] 5/325 oral 1-2 tab, PO, Q4-6H, PRN, [...] SUB-Q, Drug 08/18/2013 08/20/2013 Discontinued form: INJ, [id number], Dosing Weight 77.273, kg, Start date: 08/18/13 10:00:00, Duration: 30 day, Stop date: 09/16/13 22:00:00(Same as: Lovenox) Keflex 500 mg oral 500 mg, 1 cap, PO, QID, 40 cap, 08/20/2013 08/30/2013 Ordered capsule Substitution Allowed, CAP [place] 10/325 oral 2 tab, Route: PO, Drug Form: TAB, 08/18/2013 08/20/2013 Discontinued tablet Dosing Weight 77.273, kg, Q4H, PRN as needed for pain, Start date: 08/18/13 0:32:00, Duration: 30 day, Stop date: 09/17/13 0:31:00Do not exceed 4gm/day of acetaminophen. (Same as: [place] 325/10) Zosyn 3.375 gm, Route: IVPB, Drug form: 08/18/2013 08/19/2013 Discontinued PDR/INJ, Q8H, Dosing Weight 77.273, kg, Priority: STAT, Start date: 08/18/13 0:31:00, Duration: 30 day, Stop date: 09/17/13 0:00:00(Same as: Zosyn) Dosing based on Piperacillin component vancomycin + Sodium 1.5 gm, Route: IVPB, Drug form: 08/19/2013 08/19/2013 Discontinued Chloride 0.9% IV 250 INJ, [id number], Start date: 08/19/13 mL 2:30:00, Duration: 30 [...] values reflect the clinical guidelines of the [place] [employer]. 4Interpretive Data: Adult reference range values reflect the clinical guidelines of the [place] [employer]. HEMATOLOGY Most recent to oldest [...] 1 Day Preliminary Report No Growth At 4 Days Preliminary Report No Growth At 3 Days Preliminary Report No Growth At 2 Days PROCEDURE:Culture: Blood STATUS: Order in Progress BODY SITE: COLLECTED DATE/TIME: 08/17/2013 19:40:00 SOURCE: Blood FREE TEXT SOURCE: rt forearm PRELIMINARY REPORTS Preliminary Report No Growth At 3 Days Preliminary Report No Growth At 4 Days Preliminary Report No Growth At 2 Days Preliminary Report No Growth At 1 Day Procedures Procedures Date Related Diagnosis Cholecystectomy
--- OUTSIDE RECORDS SUMMARY | 2018-11-15 10:13 | XMS REPORT ---
Author Author [facility] Address Unknown Phone Unavailable Care Team Providers Care Bull Driver Name Role Phone Unavailable Unavailable Problems This patient has no known problems. Allergies, Adverse Reactions, Alerts This patient has no known allergies or adverse reactions. Medications This patient has no known medications. Results Test Description Test Time Test Comments Text Results Atomic Results Result Comments URINALYSIS WITHOUT MICROSCOPIC 2017-09-19 23:49:00 Color (test code=UCOLR) [place] Yellow Clarity (test code=UCLAR) Cloudy Glucose (test code=UGLUC) Negative Negative Bilirubin (test code=UBILI) Small Negative Ketones (test code=UKET) Trace Negative Specific [place] (test code=USPGR) 1.025 1.005-1.030 Blood (test code=UBLD) Large Negative PH (test code=UPH) 6.0 4.5-8.0 Protein (test code=UPROT) 30 mg/dL Negative Urobilinogen (test code=U UROB) 0.2 E.U./dL >0.2 Nitrite (test code=UNITR) Negative Negative Leukocyte Esterase (test code=ULEUK) Negative Negative CT ABD/ PELVIS W/O CON (RENAL STONE)2017-09-19 23:31:45Procedure: CT ABD/ PELVIS W/O CON (RENAL STONE)Exam date: 09/19/2017 10:23 PMOrdering Provider: SOBIA Hunginical Indication: left flank painComparison: NoneTechnique: Multiple axial helical CT images of the abdomen and pelvis wereobtained . Coronal and sagittal reformatted images were also obtained.This exam was performed according to the our departmental dose-optimizationprogram which includes automated exposure control, adjustment of the mA and/orkV according to patient size and/or use of iterative reconstruction techniques.Findings:This the heart and visualized lung bases are unremarkable.Prior cholecystectomy. Liver, spleen, pancreas, bilateral adrenal glands, andbilateral kidneys are unremar kable. Specifically, no radiopaque nephroureteralcalculi or evidence of hydroure teronephrosis.A prominent esophageal lymph node is noted on (series 2, image 19) measuring 1.0cm. Findings are similar compared to prior examination.Small bowel is nonobstructive. No pneumoperitoneum.Patchy colonic stool. Surgical clips at the base of the appendix presumablyrelating to prior appendectomy.Distal colon i s collapsed. No free fluid in the pelvis. Prostate mildlyenlarged. Bladder under distended.Soft tissues are unremarkable. Osseous structures are nonacute.Impress ion:1. No CT evidence of acute intra-abdominal or pelvic abnormality.2. Mildly p rominent esophageal lymph node, presumably reactive secondary toinflammatory pro cess such as esophagitis.This final report was electronically signed by Dr Guevara Askew MD 09/19/201711:25 PMDictated By: GUEVARA ASKEWDate: 09/19/2017 23:31CMP 2017-09-19 23:20:00* Test Item Value Reference Range Comments Glucose (test code=GLU) 101 mg/dl 75-110 BUN (test code=BUN) 16.0 mg/dl 6.0-17.0 Creatinine (test code=CREA) 1.1 mg/dl 0.4-1.2 Sodium (test code=NA) 141 mmol/l 137-145 Potassium (test code=K) 3.5 mmol/l 3.5-5.0 Chloride (test code=CL) 101 mmol/l 98-107 CO2 (test code=CO2) 28 mmol/l 22-30 Calcium (test code=CALC) 9.6 mg/dl 8.4-10.2 T Protein (test code=TP) 7.9 gm/dl 5.1-8.7 Albumin (test code=ALB) 4.6 gm/dl 3.5-4.6 A/G Ratio (test code=AGRAT) 1.4 % 1.1-2.2 AST (SGOT) (test code=AST) 32 U/L 11-36 ALT (SGPT) (test code=ALT) 41 U/L 11-40 Alkaline Phos (test code=ALKP) 120 U/L 47-114 Total Bilirubin (test code=TBIL) 1.0 mg/dl 0.2-1.2 Globulin (test code=GLOBU) 3.3 gm/dl 2.3-3.5 Calcium, Corrected (test code=CALCCORR) 9.1 mg/dl 8.4-10.2 Various formulas exist for corrected serum calcium results, each yielding different values. This corrected result was based on the formula: Corrected Calcium=SerumCalcium + [0.8 * ( 4 - SerumAlbumin)] EGFR if (test code=EGFRAA) >60 mL/min/1.73m\S\2 EGFR if Non- (test code=EGFRNA) >60 mL/min/1.73m\S\2 Estimated Glomerular Filtration Rate (eGFR) Reference Intervals Decision Points for 18 years and older and average body mass: >=60 Does not exclude kidney disease. 30 - 59 Suggests moderate chronic kidney disease and indicates the need for further investigation including assessment of proteinuria and cardiovascular factors. < 30 Usually indicates a need for referral for assessment and management of chronic kidney failure. Anion Gap (test code=GAP) 12 CBC WITH AUTO [id number] 22:56:00* Test Item Value Reference Range Comments WBC (test code=WBC) 10.65 10\S\3/ul 4.80-10.80 RBC (test code=RBC) 5.03 10\S\6/ul 4.70-6.10 Hemoglobin (test code=HGB) 17.0 gm/dl 14.0-18.0 Hematocrit (test code=HCT) 47.5 % 42.0-50.0 MCV (test code=MCV) 94.4 fL 80.0-94.0 MCH (test code=MCH) 33.8 pg 27.0-31.0 MCHC (test code=MCHC) 35.8 gm/dl 33.0-37.0 RDW (test code=RDWVC) 12.9 % 11.5-14.5 Platelet (test code=PLT) 240 10\S\3/ul 130-400 MPV (test code=MPV) 10.2 fL 7.4-10.4 NE% (test code=NE) 58.9 % 42.0-75.0 LY% (test code=LY) 25.4 % 13.0-42.0 MO% (test code=MO) 10.5 % 4.0-14.0 EO% (test code=EO) 4.0 % 1.0-3.0 BA% (test code=BA) 0.7 % 1.0-3.0 IG% (test code=IG%) 0.5 % 0.0-0.4 NRBC, Auto (test code=NRBC_AUTO) 0 /100WBC 0-2
[2018-11-15 14:15] VITALS: BP 109/60
--- NOTE | 2018-11-15 14:34 | Operative Report ---
DATE OF PROCEDURE: November 15, 2018 REFERRING PHYSICIAN: Dr. Johnny Castillo. PROCEDURE PERFORMED: Esophagogastroduodenoscopy with esophageal dilatation and biopsies and a colonoscopy with polypectomy and biopsies. INDICATIONS FOR ESOPHAGOGASTRODUODENOSCOPY: Dysphagia to solids, bloating. INDICATIONS FOR COLONOSCOPY: Colorectal cancer screening. MEDICATION: Patient was done under MAC. Please see anesthesiologist's note. PROCEDURE: With the patient in left lateral decubitus position, a flexible fiberoptic Olympus gastroscope was introduced into the esophagus under direct visualization without any difficulty. There were some concentric rings and longitudinal furrows noted in the esophagus. Findings compatible with eosinophilic esophagitis. Biopsies were obtained. The esophagus was dilated to size 48-[place] Bed[place]. The scope was then advanced with ease into the stomach, traversing a small sliding hiatal hernia. Mucosa overlying the antrum and the body revealed some patchy erythema and mild to moderate edema and biopsies were obtained and sent to stain for H. pylori. An approximately 1-cm submucosal lesion was noted in the proximal antrum along the greater curvature and biopsies were obtained. The pylorus was of normal contour and shape, was intubated with ease, and the scope was advanced all the way to the 2nd portion of the duodenum. Biopsies were obtained from the proximal 2nd portion to rule out sprue. Mucosa overlying the duodenal bulb appeared to be within normal limits. The scope was then withdrawn back into the stomach and retroflexed and 1 polyp was noted in the fundus and that was partially excised with the cold biopsy forceps. The scope was then straightened out. It was subsequently withdrawn. Patient tolerated the procedure well. IMPRESSIONS 1. Rule out eosinophilic esophagitis. 2. Esophagus dilated to size 48-[place] Bedoya. 3. Small sliding hiatal hernia. 4. Gastritis, biopsied. Biopsies sent to stain for Helicobacter pylori. 5. Gastric polyp, fundus, partially excised with cold biopsy forceps. 6. Approximately 1-cm submucosal lesion, antrum, greater curvature, biopsied. 7. Rule out sprue. PLAN: Follow up histology. Initiate Protonix 40 mg 1 p.o. q.a.m. a.c. Patient was then turned around. After adequate lubrication of the anal canal, a flexible fiberoptic Olympus colonoscope was inserted into the rectum with ease and advanced all the way to the cecum. Mucosa overlying the cecum appeared to be within normal limits. The ileocecal valve was lobular and possibly lipomatous and biopsies were obtained. The mucosa overlying the ascending, transverse, descending appeared to be within normal limits. One minute polyp was hot biopsied from the sigmoid colon and rectum appeared to be within normal limits. The scope was then retroflexed into the distal rectum. Small internal hemorrhoids were noted, none of which was actively bleeding. The scope was then straightened out. It was subsequently withdrawn. Patient tolerated the procedure well. IMPRESSIONS 1. Lobular ileocecal valve, biopsied. 2. Sigmoid colon polyp, hot biopsied. 3. Internal hemorrhoids, none actively bleeding. PLAN: Follow up histology. Initiate high-fiber, low-fat diet. Initiate high-fiber supplement. Patient might benefit from a followup colonoscopy in 3 years. Job#: [id number] TA cc:NAVYA CASTILLO DO,
== END | disposition home or self-care (01) ==
LOC: OR 10:09
PROVIDERS: ATTEND Internal Medicine Gastroenterology
DX: Z12.11 Encounter for screening for malignant neoplasm of colon (principal); R13.10 Dysphagia, unspecified; I10 Essential (primary) hypertension; E03.9 Hypothyroidism, unspecified; Z68.35 Body mass index [BMI] 35.0-35.9, adult; K44.9 Diaphragmatic hernia without obstruction or gangrene; K31.7 Polyp of stomach and duodenum; K63.5 Polyp of colon; K64.8 Other hemorrhoids; K29.50 Unspecified chronic gastritis without bleeding; K21.0 Gastro-esophageal reflux disease with esophagitis
CPT/HCPCS: 43239; 43450; 45384; 93005; J2250; J2765; 45378; 45380